=== PATIENT | male | born 1940 | race Caucasian/White ===

== ENCOUNTER 2017-06-01 15:01 | Emergency (ER) | payer MEDICARE, SELFPAY ==
[2017-06-01 15:02] VITALS: BP 146/82; PULSE 93; RESP 16; TEMP 36.4; O2SAT 96; BMI 36.2
[2017-06-01] MEDS: Lidocaine/Epi/Tetracaine 50 ML 1 APPLIC TOPICAL (16:16)
--- NOTE | 2017-06-01 17:25 | RAD_ITS ---
STUDY: X-RAY - RIGHT HAND, ATTENTION FIRST FINGER REASON FOR EXAM: Male, 76 years old. Pain and swelling TECHNIQUE: 3 view(s) of the finger were obtained. COMPARISON: None. FINDINGS: There is diffuse soft tissue swelling. There is destructive process of the head of the second phalanx and the base of the second distal phalanx. Findings are consistent with septic arthritis and osteoarthritis. 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 Electronically Signed: Ld Mcmillan MD at 17:52 EDT , Service support ,
--- NOTE | 2017-06-01 17:49 | ED.DCSUM_ITS ---
- ER Visit Summary Date of Service: 06/01/17 Chief Complaint: Right index finger pain, redness and swelling History of Present Illness: The patient is a 76 M hand dominant. Past medical history of CAD. Patient states for 2-3 weeks he had right index finger redness and swelling. He was seen by [facility] urgent care and has been placed on multiple different antibiotics including Keflex, Bactrim and I think doxycycline. This patient cannot read or write so we called the pharmacy. Patient states is not getting any better. He denies any trauma. Physical Examination: Well-appearing older male. Vital signs are stable afebrile. H EENT exam is unremarkable. Neck nontender. Lungs clear to auscultation. Heart regular rhythm no murmur. Abdomen soft nontender. Extremities moving all 4. His right index finger at the distal phalanx is red swollen and tender. There is no obvious eponychia. There is degenerative changes of the joints of the right hand consistent with arthritis. There is no signs of septic joint. There is no lymphangitic streaking. He is able to flex and extend the digit. He has normal cap refill. No signs of foreign body or trauma. No gross bony deformity other than arthritis. Test Results: Finger x-ray shows degenerative arthritic changes of distal phalanx of the right index finger. But no acute abnormality. There is also soft tissue swelling. Emergency Department Course and Treatment: I performed a metacarpal block of his right index finger. Lidocaine. Once proper consent was obtained I made an incision the distal end of the index finger. There was bleeding but absolutely no pus. I probed the incision and broke up any loculations and again there was no pus whatsoever. I then went to the dorsal side of the finger went along the nailbed made incision and there is no signs of an eponychia. This will be dressed. Treatment Plan: Patient will be placed on Keflex 4 times a day for 10 days. Follow-up with Dr. De Santiago of orthopedics. Disposition: discharge Impression: Index finger soft tissue infection Incision and drainage by ER This note was generated with [employer] dictation software. It may contain incorrect words, spelling, and punctuation that were not noted in review of the chart prior to signing ED Disposition - Plan for ED Patient: Chief Complaint: Upper Extremity Injury Referrals: Amado Gregory MD [Primary Care Provider] -
--- NOTE | 2017-06-01 17:49 | ED.DEP ---
ED Disposition - Plan for ED Patient: Disposition: Home or Assisted Living Chief Complaint: Upper Extremity Injury Prescriptions: Cephalexin [Keflex] 500 mg PO Q6 #40 cap Referrals: Amado Gregory MD [Primary Care Provider] - As soon as possible Additional Instructions: Suspect this is a soft tissue infection of your right index finger. We did the incision and drainage there was no pus however. He will be started on antibiotic Keflex 1 pill 4 times a day. And follow-up with Dr. De Santiago an orthopedic surgeon here at the hospital. Warm soaks to the finger daily. Tylenol for pain.
[2017-06-01 18:00] VITALS: PULSE 97; RESP 14; O2SAT 98
== END 2017-06-01 18:01 | disposition home or self-care (01) ==
PROVIDERS: Emergency Provider Emergency Medicine; Family Provider Family Medicine; PCP Family Medicine
DX: L08.9 Local infection of the skin and subcutaneous tissue, unspecified (principal); I25.10 Atherosclerotic heart disease of native coronary artery without angina pectoris; I25.2 Old myocardial infarction
CPT/HCPCS: 10060; 64450; 73140; 99283

== ENCOUNTER → 2017-06-22 11:02 | Outpatient (CLI) | payer MEDICARE, SELFPAY ==
[2017-06-22 11:43] LABS: Erythrocyte Sedimentation Rate 17 mm/hr (0-20)
[2017-06-22 11:44] LABS: Absolute Lymphocyte Count 1.35 X10^3/ul (0.83-4.51); Absolute Neutrophil Count 3.4 X10^3/uL (2.0-7.7); Basophil# 0.02 X10^3/uL; Basophil% 0.4 % (0-1); Eosinophil# 0.07 X10^3/uL; Eosinophils% 1.3 % (0-5); Hematocrit 37.8 % (40-54); Hemoglobin 13.4 g/dl (13.0-16.5); Lymphocyte # 1.35 X10^3/ul (4.0); Lymphocyte % 25.2 % (19-41); Mean Corp Hgb Conc 35.4 g/gl (32-36); Mean Corpuscular Hgb 32.1 pg (27.0-32.0); Mean Corpuscular Volume 90.4 fL (80-94); Mean Platelet Vol. 9.1 fl (6.2-12.0); Monocyte% 9.3 % (0-10); Neutrophil # 3.41 X10^3/uL (2.7-7.7); Neutrophil % 63.6 % (47-70); POSITIVE COUNT NO; POSITIVE DIFFERENTIAL NO; POSITIVE MORPHOLOGY NO; Platelet Count 207 K/mm3 (150-450); RBC Distribution Width SD 42.3 fl (35.1-43.9); Red Blood Count 4.18 M/mm3 (4.6-6.2); White Blood Count 5.4 K/mm3 (4.4-11.0)
[2017-06-22 12:07] LABS: CRP < 2.90 mg/L (0.0-3.0); Uric Acid 7.4 mg/dL (3.5-7.2)
[2017-06-23 09:45] LABS: Anion Gap 10 (5-15); BUN 23 mg/dL (7-18); BUN/Creat Ratio 19.7 RATIO (10-20); Calcium,Total 9.5 mg/dL (8.5-10.1); Chloride 103 mmol/L (98-107); Creatinine, Serum 1.17 mg/dL (0.70-1.30); EST Glomerular Filtration Rate 64 mL/min (>60); Est Glom Filt Rate - Afr Amer 77 mL/min (>60); Glucose 109 mg/dL (74-106); Potassium 4.4 mmol/L (3.5-5.1); Sodium Level 138 mmol/L (136-145)
== END ==
PROVIDERS: Family Provider Family Medicine; PCP Family Medicine; Visit Provider Physician Assistant
DX: L03.011 Cellulitis of right finger (principal); I10 Essential (primary) hypertension
CPT/HCPCS: 36415; 80048; 84550; 85025; 85652; 86140

== ENCOUNTER 2019-03-10 13:00 | Emergency (ER) | payer MEDICARE, MEDICAID, SELFPAY ==
[2019-03-10 13:01] VITALS: BP 149/86; PULSE 101; RESP 19; TEMP 36.8; O2SAT 95; BMI 35.9
--- NOTE | 2019-03-10 13:11 | EKG12_ITS ---
Test Reason : Blood Pressure : / mmHG Vent. Rate : 097 BPM Atrial Rate : 097 BPM P-R Int : 198 ms QRS Dur : 084 ms QT Int : 338 ms P-R-T Axes : 052 032 009 degrees QTc Int : 429 ms Normal sinus rhythm Normal ECG Confirmed by HILARY CALDWELL MD ([id number]), editorial cartoonist BRENDA REYES ([id number]) on 03/13/2019 8:32:46 AM Referred By: LARRY Confirmed By:HILARY CALDWELL MD
--- NOTE | 2019-03-10 13:11 | RAD_ITS ---
STUDY: X-RAY CHEST REASON FOR EXAM: Male, 78 years old. WEAKNESS, CONFUSION TECHNIQUE: Single AP portable view of the chest. COMPARISON: 11/15/2009. FINDINGS: There are hypoventilatory changes. No focal infiltrate is seen. There is no demonstrated pleural abnormality. There is borderline cardiomegaly. Normal mediastinum and tim. Normal visualized pulmonary arteries. There is atherosclerotic calcification of the aortic arch with tortuosity. Stable bony structures. There is no demonstrated abnormality of the visualized soft tissue structures of the upper abdomen. RAD/Chest 1 View (Portable) IMPRESSION: No active pulmonary disease. Electronically Signed: Nayan Reyna MD at 13:42 EST Tel , Service support ,
--- NOTE | 2019-03-10 13:57 | RAD_ITS ---
STUDY: X-RAY - PELVIS AND RIGHT HIP REASON FOR EXAM: Male, 78 years old. Confusion. Hypoglycemia. Unable to walk. TECHNIQUE: 4 views of the pelvis and hip. COMPARISON: None. FINDINGS: There is a non-specific bowel gas pattern. Normal visualized soft tissue structures. There are multiple calcified phleboliths. Normal bilateral iliac wings, sacroiliac joints and visualized sacrum. Normal bilateral superior and inferior pubic rami. Normal pubic symphysis. Normal bilateral ischial tuberosities. Normal visualized right femoral head. Normal right acetabulum. There is mild articular joint space narrowing of the right hip. RAD/HIP, UNI W/ Pelvis 2-3 Views IMPRESSION: Mild degenerative changes of right hip without fracture or dislocation. Electronically Signed: Shilo Rojas DO at 16:17 EST Tel [phone], Service support ,
--- NOTE | 2019-03-10 13:57 | RAD_ITS ---
STUDY: X-RAY - RIGHT KNEE REASON FOR EXAM: Male, 78 years old. Confusion. Unable to walk. Hypoglycemic. TECHNIQUE: 4 view(s) of the knee. COMPARISON: None. FINDINGS: Normal visualized distal femur. Normal visualized proximal tibia and fibula. Normal proximal tibiofibular articulation. There is no acute fracture, dislocation or destructive osseous pathology. There is minimal degenerative arthrosis of the medial femorotibial compartment. Normal lateral femorotibial compartment. Normal patellofemoral articulation. There is no demonstrated joint effusion. There are atherosclerotic calcifications. RAD/Knee 4 or More Views IMPRESSION: Minimal degenerative changes of the knee without fracture or dislocation. Electronically Signed: Shilo Rojas DO at 16:15 EST Tel [phone], Service support ,
--- NOTE | 2019-03-10 13:58 | RAD_ITS ---
STUDY: X-RAY - LUMBAR SPINE REASON FOR EXAM: Male, 78 years old. Confusion. Hypoglycemia. Unable to walk. TECHNIQUE: 3 view(s) of the lumbar spine were obtained. COMPARISON: None FINDINGS: Normal lumbar lordosis. There is no substantial scoliosis. There is a normal alignment of the vertebrae. There is multilevel endplate spondylosis of the lumbar vertebrae. Normal disc space heights. There is no evidence of acute fracture or loss of vertebral axial height. There is diffuse degenerative facet disease. There is atherosclerotic calcification of the abdominal aorta without a demonstrated aneurysm. RAD/Lumbar Spine 2 or 3 Views IMPRESSION: Degenerative changes of the spine, as detailed above. There is no acute fracture or subluxation. Electronically Signed: Shilo Rojas DO at 16:16 EST Tel [phone], Service support ,
--- NOTE | 2019-03-10 13:59 | ED.DCSUM_ITS ---
History of Present Illness Chief Complaint: Weakness Informant: Patient, Family Onset: - Maximum Severity: Mild - Ears Narrative: The patient presents complaining of knee pain that is had for years he has history of gout hypertension arthritis high cholesterol, he lives with his son the son reports today the symptoms were such that he had trouble getting around his house getting in and out of his van and he was brought to the hospital. The patient reports this is the same pain he has had for years it is exacerbated for no specific reason, he does intermittently fall but not recently, he has no head neck chest or abdominal pain he is eating and drinking well he feels if his pain could be better controlled he could function at home he also has intermittent urinary incontinence that is not new or different basically resting in the bed when you ask him what is bothering him he points to his right knee and complains of pain Past Medical History - Allergies and Home Meds Allergies/Adverse Reactions: Allergies No Known Allergies Allergy (Verified 03/10/19 13:07) Primary Care Physician: Amado Gregory MD [Primary Care Provider] - Past Medical History: - Smoking Status: Former smoker Review of Systems ROS: - As above General: Denies: Chills, Fever, Sweats Eyes: Denies: Visual changes - bilaterally, Diplopia ENT: Denies: Rhinorrhea, Sore throat Cardiovascular: Denies: Chest pain, Palpitations Respiratory: Denies: Dyspnea, Cough, Dyspnea on exertion Gastrointestinal: Denies: Abdominal pain, Nausea, Vomiting, Diarrhea, Melena, Hematochezia Genitourinary: Reports: - - Urinary incontinence. Denies: Dysuria, Hematuria, Frequency Musculoskeletal: Reports: - - Chronic pain in almost all of his joints he has gout he also complains of chronic pain in his right hand but his chief issue is persistent chronic pain to the right knee. Denies: Back pain, Extremity Pain Skin: Denies: Rash, Wounds Neurological: Denies: Headache, Weakness, Numbness Physical Exam Vital Signs/Narrative: Vital Signs Temp Pulse Resp BP Pulse Ox 03/10/19 13:01 98.2 F 101 H 19 H 149/86 H 95 General: Well nourished, Well developed, No Acute Distress Head: Normocephalic, Atraumatic Eyes: Perrl, EOMI ENT: Moist mucous membranes, No rhinorrhea Neck: Supple, Nontender Cardiovascular: Regular rate, Regular rhythm, No murmurs Respiratory: No distress, CTA bilaterally, Chest nontender Abdomen: Soft, Nontender, Nondistended, Normal bowel sounds Back: Nontender, Normal Inspection Extremities: Nontender, No edema, - - He has some arthritic changes to the right hand particularly to the right hand DIP and PIP joint there is no trauma here there is no signs of anything acute or active, the right knee which is focused in chief complaint he has full range of motion there is no signs of contusion or bruising he has no specific pain to the hip or to the back his distal leg exam shows chronic changes to the skin no signs of acute vascular or neurologic abnormality or deficiency Skin: Normal color, No rash Neurological: Alert, Oriented x3, Cranial nerves II-XII grossly intact, Normal Strength, Normal Sensation Psychological: Normal affect, Normal Mood Diagnostic/Tx/Re-eval - Medical Decision Making When all of the above in his age his complaints screening labs x-rays The patient's EKG shows a sinus rhythm nothing acute, his chest x-ray and all of the other x-rays show DJD nothing acute he has been medicated he is feeling better this knee discomfort he has had a longstanding he has had a for years the patient's couple discharged home, he will be discharged on Naprosyn [place] No. 4 tablets to use as needed he suggests he has a walker or cane that he can use have asked him to use that if not he will be provided with a walker and needs to follow-up with his outpatient providers for further management, he is comfortable discharge home to follow-up with his outpatient providers Home in stable Acute recurrent right knee pain ED Disposition - Plan for ED Patient: Diagnosis: Right knee pain Prescriptions: Naproxen [Naprosyn] 500 mg PO BID PRN PRN #10 tab PRN Reason: Pain Or Fever Prescription Printed Hydrocodone Bitart/Apap 5-325 [[place] 5MG-325MG] 1 tab PO Q4H PRN PRN 2 Days #10 tab PRN Reason: Pain Prescription Printed Walker [Ultra-Light Rollator] 1 ea [facility] DAILY #1 ea Prescription Printed Referrals: Amado Gregory MD [Primary Care Provider] -
--- NOTE | 2019-03-10 14:02 | RAD_ITS ---
STUDY: X-RAY - RIGHT HAND REASON FOR EXAM: Male, 78 years old. Confusion. Unable to walk. Patient says he hasn''t eaten a feeding and 2 days. Hypoglycemia. TECHNIQUE: 3 view(s) of the hand. COMPARISON: Right index finger, June 01, 2017. FINDINGS: Normal radiocarpal articulation. Normal distal radioulnar joint. Normal visualized carpal bones. There is degenerative joint disease of the scaphotrapezium / trapezoid articulation. The remainder of the carpal articulations are normal. There is degenerative arthrosis of the carpometacarpal (CMC) articulation of the thumb. Normal second through fifth carpometacarpal joints. Normal metacarpi. There is degenerative arthrosis of the first metacarpophalangeal (MCP) joint. There is degenerative arthrosis of the interphalangeal joint of the thumb with articular joint space narrowing. Normal proximal and distal phalanges of the thumb. Normal metacarpophalangeal joints of the second through fifth fingers. There is diffuse articular joint space narrowing of the proximal and distal interphalangeal joints of the second through fifth fingers. Again seen is erosive changes of the second distal interphalangeal joint. There is a mild flexion deformity. Otherwise normal phalanges of the second through fifth fingers. The soft tissue structures are unremarkable. RAD/Hand Min 3 Views IMPRESSION: 1. No acute fracture or dislocation. 2. Stable erosive changes at the second distal interphalangeal joint. Arthritic versus infectious. Etiology Electronically Signed: Shilo Rojas DO at 16:13 EST Tel [phone], Service support ,
[2019-03-10 14:16] LABS: Absolute Lymphocyte Count 0.65 X10^3/uL (0.83-4.51); Absolute Neutrophil Count 5.1 X10^3/uL (2.0-7.7); Basophil# 0.01 X10^3/uL; Basophil% 0.2 % (0-1); Eosinophil# 0.01 X10^3/uL; Eosinophils% 0.2 % (0-5); Hematocrit 34.7 % (40-54); Hemoglobin 11.8 g/dL (13.0-16.5); Lymphocyte # 0.65 X10^3/ul (4.0); Lymphocyte % 9.9 % (19-41); Mean Corpuscular Volume 91.1 fL (80-94); Mean Platelet Vol. 8.8 fl (6.2-12.0); Monocyte# 0.84 X10^3/uL; Monocyte% 12.7 % (0-10); NRBC Flagged by Analyzer 0 % (0-5); Neutrophil # 5.07 X10^3/uL (2.7-7.7); Neutrophil % 76.8 % (47-70); Platelet Count 181 K/mm3 (150-450); RBC Distribution Width CV 13.2 % (11.6-14.6); RBC Distribution Width SD 44.2 fl (35.1-43.9); Red Blood Count 3.81 M/mm3 (4.6-6.2); White Blood Count 6.6 K/mm3 (4.4-11.0)
[2019-03-10 14:34] LABS: Anion Gap 5 (5-15); BUN 36 mg/dL (7-18); BUN/Creat Ratio 31.6 RATIO (10-20); Calcium,Total 9.1 mg/dL (8.5-10.1); Chloride 101 mmol/L (98-107); Creatinine, Serum 1.14 mg/dL (0.70-1.30); EST Glomerular Filtration Rate 66 mL/min (>60); Est Glom Filt Rate - Afr Amer 79 mL/min (>60); Estimated Creatinine Clearance 51.68 ml/min; Glucose 130 mg/dL (74-106); Sodium Level 133 mmol/L (136-145)
[2019-03-10] MEDS: Ondansetron 8 MG Tablet PO (15:02)
[2019-03-10] MEDS: Ketorolac 15 MG/ML Vial IV (15:02)
[2019-03-10] MEDS: morphine 8 MG/ML Syringe 6 MG IV (15:03)
[2019-03-10 16:19] VITALS: BP 127/73; PULSE 82; RESP 16; O2SAT 95; O2SAT 96
[2019-03-10 18:32] VITALS: BP 135/65; PULSE 80; RESP 16; O2SAT 93
== END 2019-03-10 18:58 | disposition home or self-care (01) ==
LOC: ED 13:47
PROVIDERS: Emergency Provider Emergency Medicine; PCP Family Medicine
DX: M17.11 Unilateral primary osteoarthritis, right knee (principal); M16.11 Unilateral primary osteoarthritis, right hip; I10 Essential (primary) hypertension; M10.9 Gout, unspecified; E78.00 Pure hypercholesterolemia, unspecified; Z87.891 Personal history of nicotine dependence
CPT/HCPCS: 71045; 72100; 73130; 73502; 73564; 80048; 83880; 84484; 85025; 93005; 96374; 96375; 99285; A4216

== ENCOUNTER 2019-03-16 09:53 | Inpatient (IN) | payer MEDICARE, MEDICAID, SELFPAY ==
[2019-03-16 09:54] VITALS: BP 124/74; PULSE 95; RESP 16; TEMP 36.1; O2SAT 98; BMI 31.3
--- NOTE | 2019-03-16 10:06 | CT_ITS ---
STUDY: CT BRAIN WITHOUT CONTRAST REASON FOR EXAM: Male, 78 years old. Confusion, mental status change RADIATION DOSAGE (If Supplied By Facility): CTDIvol = ( 44.99 ) mGy, DLP = ( 796.11 ) mGycm TECHNIQUE: Transaxial CT imaging of the brain was performed without administration of intravenous contrast material. Individualized dose optimization techniques were used for this CT. COMPARISON: No relevant priors. FINDINGS: Normal soft tissue structures. Normal calvarium. There is mild cerebral atrophy with widening of the extra-axial spaces and ventricular dilatation. There are areas of decreased attenuation within the white matter tracts of the supratentorial brain, consistent with microvascular disease changes. There is an old right frontal lobe infarct. Normal basal ganglia and thalami. Normal brainstem. Normal cerebellum. There is no intracranial hemorrhage. There are no findings of an acute ischemic infarction. Normal visualized paranasal sinuses. CT/Brain/Head without Contrast IMPRESSION: Chronic involutional changes of the brain no acute hemorrhage. Old right frontal lobe infarct Electronically Signed: David Ramirez MD at 11:30 EST , Service support ,
--- NOTE | 2019-03-16 10:06 | EKG12_ITS ---
Test Reason : WEAKNESS Blood Pressure : / mmHG Vent. Rate : 084 BPM Atrial Rate : 084 BPM P-R Int : 208 ms QRS Dur : 078 ms QT Int : 392 ms P-R-T Axes : 053 016 015 degrees QTc Int : 463 ms Sinus rhythm with Premature atrial complexes Otherwise normal ECG Confirmed by MIRNA BRIDGES, PEDRO ([id number]), metropolitan editor ИРИНА MORLEY ([id number]) on 03/19/2019 10:52:22 AM Referred By: ANGELICA Confirmed By:RACHEL BRADLEY MD
--- NOTE | 2019-03-16 10:07 | CT_ITS ---
STUDY: CT ABDOMEN AND PELVIS WITHOUT CONTRAST REASON FOR EXAM: Male, 78 years old. WEIGHT LOSS, CONFUSION RADIATION DOSAGE (If Supplied By Facility): CTDIvol = ( 16.98 ) mGy, DLP = ( 1422.49 ) mGycm TECHNIQUE: Transaxial images were obtained from the dome of the diaphragm to the symphysis pubis without oral contrast, and without intravenous contrast. Sagittal and coronal images were reconstructed. Individualized dose optimization techniques were used for this CT. COMPARISON: None. FINDINGS: There are chronic interstitial fibrotic changes of the lung bases. Calcified coronary vessels noted. Normal liver. There are surgical clips in the gallbladder fossa consistent with a prior cholecystectomy. Normal spleen. Normal pancreas. There is a 1.31 cm smooth, low attenuation left adrenal mass, consistent with an adrenal adenoma. Normal right adrenal gland. Normal right kidney. Normal left kidney. Normal visualized stomach. Normal small intestine. Retained stool in colon. Scattered colonic diverticulosis. No CT evidence of acute diverticulitis The appendix is visualized and appears normal. Appendix best seen on coronal retention images 51 through 57 There is diffuse atherosclerotic calcification of the abdominal aorta, without a demonstrated aneurysm. Normal inferior vena cava. Normal retroperitoneum. Normal urinary bladder. There are prostatic calcifications. Normal abdominal wall. There are diffuse degenerative changes of the visualized lumbar spine. CT/Abdomen/Pelvis W IV Cont ONLY IMPRESSION: Colonic diverticulosis 1.3 cm left adrenal adenoma Diffuse atherosclerosis in the abdominal aorta and other arterial vessels Degenerative bony changes Electronically Signed: David Ramirez MD at 11:35 EST , Service support ,
--- NOTE | 2019-03-16 10:21 | ED.DCSUM_ITS ---
History of Present Illness Chief Complaint: Weakness Informant: Patient Onset: Weeks Context: Gradual Onset Timing: Continuous Current Severity: Moderate Maximum Severity: Moderate Narrative: The patient is an 78-year-old male with medical history significant for hypertension, coronary vascular disease, hyperlipidemia with questionable diagnosis of dementia the presents to the emergency department with increasing weakness and diminished functioning. Per the son at the bedside who has been living with him for the past month, the patient has been gradually declining. This past week, he was trying to get into his car, and had weakness and could not. He was complaining of pain in his knee which he has history of arthritis. The patient was actually seen here. He had a metabolic work-up and x-rays done which were rather unremarkable. It did show his chronic degenerative change. The son states that since being home, his symptoms have worsened. He is been l ess talkative. He is not been eating. He is had about a 30 pound weight loss within the past month. He has had frequent falls. Prior similar symptoms: Yes Recent Illness/Hospitalization: No Past Medical History - Allergies and Home Meds Allergies/Adverse Reactions: Allergies No Known Allergies Allergy (Verified 03/16/19 09:53) Prior records reviewed: Yes Past Medical History: - - Coronary vascular disease, arthritis, hypertension, hyperlipidemia Surgical History: noncontributory Smoking Status: Former smoker Review of Systems General: Reports: Weight loss. Denies: Chills, Fever, Sweats Eyes: Denies: Visual changes - bilaterally, Diplopia ENT: Denies: Rhinorrhea, Sore throat Cardiovascular: Denies: Chest pain, Palpitations Respiratory: Denies: Dyspnea, Cough, Dyspnea on exertion Gastrointestinal: Reports: Nausea. Denies: Abdominal pain, Vomiting, Diarrhea, Melena, Hematochezia Genitourinary: Denies: Dysuria, Hematuria, Frequency Musculoskeletal: Denies: Back pain, Extremity Pain Skin: Denies: Rash, Wounds Neurological: Reports: Weakness. Denies: Headache, Numbness Physical Exam Vital Signs/Narrative: Vital Signs Temp Pulse Resp BP Pulse Ox 03/16/19 09:54 96.9 F L 95 16 124/74 H 98 Inital Vital Signs reviewed: Yes General: Well nourished, Well developed, No Acute Distress Head: Normocephalic, Atraumatic Eyes: Perrl, EOMI ENT: No rhinorrhea, Dry mucous membranes Neck: Supple, Nontender Cardiovascular: Regular rate, Regular rhythm, No murmurs Respiratory: No distress, CTA bilaterally, Chest nontender Abdomen: Soft, Nontender, Nondistended, Normal bowel sounds Back: Nontender, Normal Inspection Extremities: Nontender, No edema Skin: Normal color, No rash Neurological: Alert, Cranial nerves II-XII grossly intact, Normal Sensation, Weakness - right lower extremity Psychological: Normal affect, Normal Mood Diagnostic/Tx/Re-eval Clinical Impression(s) from Imaging Studies Brain CT 03/16/19 10:06 IMPRESSION: Chronic involutional changes of the brain no acute hemorrhage. Old right frontal lobe infarct Electronically Signed: David Ramirez MD at 11:30 EST , Service support , Abdomen/Pelvis CT 03/16/19 10:07 IMPRESSION: Colonic diverticulosis 1.3 cm left adrenal adenoma Diffuse atherosclerosis in the abdominal aorta and other arterial vessels Degenerative bony changes Electronically Signed: David Ramirez MD at 11:35 EST , Service support , Abnormal Lab Results 03/16/19 03/16/19 03/16/19 10:20 10:20 10:40 WBC 6.0 RBC 4.11 L Hgb 13.0 Hct 37.5 L MCV 91.2 MCH 31.6 MCHC 34.7 RDW Std Deviation 42.5 RDW Coeff of Bhavani 13.0 Plt Count 245 MPV 8.9 Immature Gran % (Auto) 0.500 Neut % (Auto) 74.4 H Lymph % (Auto) 9.8 L Webb % (Auto) 12.6 H Eos % (Auto) 2.2 Baso % (Auto) 0.5 Absolute Neuts (auto) 4.5 Absolute Lymphs (auto) 0.59 L Nucleated RBC % 0 Differential Comment SCANNED Sodium 133 L Potassium 3.5 Chloride 100 Carbon Dioxide 27.0 Anion Gap 6 BUN 39 H Creatinine 1.28 Estim Creat Clear Calc 46.03 Est GFR (MDRD) Af Amer 70 Est GFR (MDRD) Non-Af 57 L BUN/Creatinine Ratio 30.5 H Glucose 119 H Calcium 9.6 Total Bilirubin 1.30 H AST 48 H ALT 42 Alkaline Phosphatase 65 Total Protein 7.6 Albumin 4.1 Globulin 3.5 Albumin/Globulin Ratio 1.2 Urine Color Yellow Urine Clarity Sl. Cloudy Urine pH 5.0 Ur Specific [place] 1.025 Urine Protein Negative Urine Glucose (UA) Normal Urine Ketones 15 H Urine Occult Blood Negative Urine Nitrite Negative Urine Bilirubin 1 H Urine Urobilinogen 1 H Ur Leukocyte Esterase 25 H Urine RBC 0 SEEN Urine WBC 0-5 SEEN Ur Squamous Epith Cells 0-5 SEEN Urine Bacteria 0 SEEN Urine Mucus 2+ - Medical Decision Making Patient presents with increasing weakness, generalized malaise, and weight loss. Broad metabolic work-up was pursued. CT head shows evidence of old stroke, but no acute change. CT the abdomen pelvis given his weight loss was obtained. This was unremarkable. Screening labs are relatively unremarkable without signi ficant change from prior. However, I do suspect this is multifactorial. The patient likely has vascular dementia. He has not been eating. He has had significant weight loss. He is also been ataxic with frequent falls. I do feel he is likely need further metabolic work-up and likely placement. The son at bedside is in agreement with this plan of care. Impression 1. Frequent falls ED Disposition - Plan for ED Patient:
[2019-03-16] MEDS: 0.9% Normal Saline 1,000 ML 1000 ML IV (10:25)
[2019-03-16 10:31] LABS: Absolute Lymphocyte Count 0.59 X10^3/uL (0.83-4.51); Absolute Neutrophil Count 4.5 X10^3/uL (2.0-7.7); Basophil# 0.03 X10^3/uL; Basophil% 0.5 % (0-1); Eosinophil# 0.13 X10^3/uL; Eosinophils% 2.2 % (0-5); Hematocrit 37.5 % (40-54); Lymphocyte # 0.59 X10^3/ul (4.0); Lymphocyte % 9.8 % (19-41); Mean Corp Hgb Conc 34.7 g/dL (32-36); Mean Corpuscular Hgb 31.6 pg (27.0-32.0); Mean Corpuscular Volume 91.2 fL (80-94); Mean Platelet Vol. 8.9 fl (6.2-12.0); Monocyte# 0.76 X10^3/uL; Monocyte% 12.6 % (0-10); NRBC Flagged by Analyzer 0 % (0-5); Neutrophil % 74.4 % (47-70); POSITIVE DIFFERENTIAL YES; Platelet Count 245 K/mm3 (150-450); RBC Distribution Width SD 42.5 fl (35.1-43.9); Red Blood Count 4.11 M/mm3 (4.6-6.2)
[2019-03-16 10:33] LABS: Differential Indicated SCAN CRITERIA MET
[2019-03-16 10:43] LABS: Differential Comment SCANNED
[2019-03-16 10:44] LABS: Bacteria 0 SEEN /hpf (None Seen); Red Blood Cells-Urine 0 SEEN /hpf (0-5)
[2019-03-16 10:49] LABS: ALB/GLOB Ratio 1.2 RATIO (0.9-2.4); AST(SGOT) 48 U/L (15-37); Alanine Aminotransfer ALT/SGPT 42 U/L (16-61); Albumin, Serum 4.1 g/dL (3.2-5.0); Alkaline Phosphatase 65 U/L (45-117); Anion Gap 6 (5-15); BUN 39 mg/dL (7-18); BUN/Creat Ratio 30.5 RATIO (10-20); Calcium,Total 9.6 mg/dL (8.5-10.1); Chloride 100 mmol/L (98-107); Creatinine, Serum 1.28 mg/dL (0.70-1.30); EST Glomerular Filtration Rate 57 mL/min (>60); Est Glom Filt Rate - Afr Amer 70 mL/min (>60); Estimated Creatinine Clearance 46.03 ml/min; Globulin 3.5 g/dL (2.2-4.2); Glucose 119 mg/dL (74-106); Potassium 3.5 mmol/L (3.5-5.1); Protein, Total 7.6 g/dL (6.4-8.2); Sodium Level 133 mmol/L (136-145)
[2019-03-16 10:59] LABS: Color, Urine Yellow (Yellow); Glucose, Dipstick Normal (Normal); Ketone-Dipstick 15 mg/dl (Negative); Leukocyte Esterase-Dipstick 25 /ul (Negative); Nitrite-Dipstick Negative (Negative); Occult Blood-Urine Negative /ul (Negative); Protein-Dipstick Negative (Negative); Specific Gravity, Urine 1.025 (1.002-1.030); Urine Clarity Sl. Cloudy (Clear); Urine Urobilinogen 1 mg/dl (Normal)
[2019-03-16 11:02] LABS: Urine Bilirubin Dipstick 1 mg/dL (Negative)
[2019-03-16 11:08] LABS: Mucous, Urine 2+ /hpf (<or=2+); Squamous Epithelial Cells - UA 0-5 SEEN /hpf (0-5); White Blood Cells 0-5 SEEN /hpf (0-5)
[2019-03-16 12:33] VITALS: BP 148/94; PULSE 93; RESP 19; O2SAT 97
--- NOTE | 2019-03-16 12:39 | NURSING ---
pt more alert after iv bag infused. drinking pop. aware of staying in hosptial. stated, i sure hope i can get to ride my motorcycle this summer
[2019-03-16 12:59] VITALS: BP 148/94; PULSE 86; RESP 15; O2SAT 98
[2019-03-16 13:13] VITALS: BP 145/77; PULSE 94; RESP 18; TEMP 36.5; O2SAT 100; BMI 33.5
--- NOTE | 2019-03-16 14:11 | NURSING ---
Contacted Dr Cunningham's office (listed as patient PCP) requested patient home medication list and past medical history as patient has been unable to provide a full history of the above. Fax number provided to office staff for [facility]. Will await for information. Rosie cottrell RN aware of record request
[2019-03-16 15:08] VITALS: BMI 33.5
[2019-03-16] MEDS: 0.9% Saline Lock 10 ML Syringe IV (15:25)
[2019-03-16] MEDS: 0.9% Normal Saline 1,000 ML 100 ML IV (15:26)
[2019-03-16 17:15] VITALS: BP 121/65; PULSE 90; RESP 18; TEMP 36.8; O2SAT 95
--- NOTE | 2019-03-16 17:26 | PCM.HP.STD ---
<Miguel Rosado - Last Filed: 03/17/19 09:24> Problem List (1) Dementia Status: Acute (2) Debility Status: Chronic (3) HTN (hypertension) Status: Chronic (4) HLD (hyperlipidemia) Status: Chronic (5) BPH (benign prostatic hyperplasia) Status: Chronic History of Present Illness Date of Admission: 03/17/19 Chief Complaint: debility The patient is a 78 year old M with pmhx of dementia, htn, hld, bph who presented to the ER with increasing debility and weakness at home. Family was not present at the time of interview and patient is very confused and only able to provide minimal history, much of HPI obtained from chart. Son lives with him and notes gradual decline. The patient admits to weakness and minimal PO intake. His only complaint currently is right hand and right leg pain. He has a hx of arthritis. He has lost about 30 pounds in a month per his son. He had a 1.3 cm left adrenal adenoma previously unknown. He has no evidence of acute infection. He complains of fever/leukocytosis, no dysuria, no cough/sob/chills/wounds/nausea/vomiting. Plan is for therapy and placement. [] Past Medical History Past Medical History (Chronic Problems): Chronic Problems Debility (Chronic) HTN (hypertension) (Chronic) HLD (hyperlipidemia) (Chronic) BPH (benign prostatic hyperplasia) (Chronic) Allergies No Known Allergies Allergy (Verified 03/16/19 09:53) Home Medications: Ambulatory Orders Medication Instructions Recorded Amlodipine [Norvasc] 5 mg PO DAILY 06/01/17 Lisinopril/Hydrochlorothiazide 1 each PO DAILY 06/01/17 [Zestoretic 20-12.5 mg Tablet] Pravastatin [Pravachol] 80 mg PO DAILY 06/01/17 Walker [Ultra-Light Rollator] 1 ea MC DAILY #1 ea 03/10/19 Allopurinol [Zyloprim] 300 mg PO DAILY 03/16/19 Tamsulosin HCl [Flomax] 0.4 mg PO QHS 03/16/19 Surgical History: noncontributory Psychiatric History: No pertinent psych hx Lives: With Family Smoking Status: Current every day smoker Tobacco Use: Non-smoker Alcohol: None Drugs: None - *Family History Maternal History Items: No pertinent history Paternal History Items: No pertinent history Review of Systems Constitutional: Reports: Weakness, Fatigue. Denies: Chills, Fever, Weight Change HEENT: Denies: Head Aches, Sinus Congestion, Sinus Drainage Cardiovascular: Denies: Chest Pain, Palpitations Respiratory: Denies: Cough, Shortness of Breath, Shortness of breath at rest, Sputum production Gastrointestinal: Denies: Abdominal Pain, Nausea, Vomiting Genitourinary: Denies: Dysuria Musculoskeletal: Denies: Joint Pain, Joint Tenderness Skin: Denies: Rash, Wounds Neurological: Denies: Numbness, Tingling, Focal weakness Psychiatric: Denies: Anxiety, Depression, Homicidal Ideations, Suicidal Ideations Hematologic/ Lymphatic: Denies: Easy Bruising, Easy Bleeding VTE Information - Inpt Only VTE Present on Admission: No VTE Mechan Device Prophylaxis: None VTE Pharm Prophylaxis ordered?: No Patient Problems: Active and Suspected Problems Dementia (Acute) - Physical Exam Vitals/I&O's: Vital Signs Temp Pulse Resp BP Pulse Ox 98.2 F 90 18 121/65 H 95 03/16/19 17:15 03/16/19 17:15 03/16/19 17:15 03/16/19 17:15 03/16/19 17:15 Oxygen Delivery Method Room Air Weight: 226 lb 4.8 oz Body Mass Index (BMI) 33.5 Intake and Output for Last 24 Hours 03/14/19 03/15/19 03/16/19 23:59 23:59 23:59 Intake Total 1000 / 1000 Balance 1000 / 1000 General: Alert, Oriented x3, Cooperative HEENT: Atraumatic, PERRLA, EOMI, Normocephalic Neck: Supple, No JVD, Negative Carotid Bruits Lungs: Clear to auscultation, Normal air movement Cardiovascular: Regular rate, No murmurs Abdomen: Bowel Sounds Present, Soft, Non Tender Extremities: No edema, Capillary Refill Less than 3 Seconds Skin: No rashes, No breakdown Musculoskeletal: No Tenderness to Palpation of Joints or Extremities Neurological: Cranial nerves II-XII grossly intact Psych/Mental Status: Normal Affect, Appropriate, Alert and oriented to time, place, person, mood and affect Laboratory Results 03/16/19 10:20: WBC 6.0, RBC 4.11 L, Hgb 13.0, Hct 37.5 L, MCV 91.2, MCH 31.6, MCHC 34.7, RDW Std Deviation 42.5, RDW Coeff of Bhavani 13.0, Plt Count 245, MPV 8.9, Immature Gran % (Auto) 0.500, Neut % (Auto) 74.4 H, Lymph % (Auto) 9.8 L, [place] % (Auto) 12.6 H, Eos % (Auto) 2.2, Baso % (Auto) 0.5, Absolute Neuts (auto) 4.5, Absolute Lymphs (auto) 0.59 L, Nucleated RBC % 0, Differential Comment SCANNED 03/16/19 10:20: Sodium 133 L, Potassium 3.5, Chloride 100, Carbon Dioxide 27.0, Anion Gap 6, BUN 39 H, Creatinine 1.28, Estim Creat Clear Calc 46.03, Est GFR (MDRD) Af Amer 70, Est GFR (MDRD) Non-Af 57 L, BUN/Creatinine Ratio 30.5 H, Glucose 119 H, Calcium 9.6, Total Bilirubin 1.30 H, AST 48 H, ALT 42, Alkaline Phosphatase 65, Total Protein 7.6, Albumin 4.1, Globulin 3.5, Albumin/Globulin Ratio 1.2 03/16/19 10:40: Urine Color Yellow, Urine Clarity Sl. Cloudy, Urine pH 5.0, Ur Specific [place] 1.025, Urine Protein Negative, Urine Glucose (UA) Normal, Urine Ketones 15 H, Urine Occult Blood Negative, Urine Nitrite Negative, Urine Bilirubin 1 H, Urine Urobilinogen 1 H, Ur Leukocyte Esterase 25 H, Urine RBC 0 SEEN, Urine WBC 0-5 SEEN, Ur Squamous Epith Cells 0-5 SEEN, Urine Bacteria 0 SEEN, Urine Mucus 2+ Current Medications [facility] Amlodip[facility]ylate (Norvasc) 5 mg PO DAILY [facility] Enoxaparin Sodium (Lovenox) 40 mg SC DAILY [facility] Hydrochlorothiazide () 12.5 mg PO DAILY [facility] Sodium Chloride () 1,000 mls @ 100 mls/hr IV .Q10H [facility] Last Admin: 03/16/19 15:26 Dose: 100 mls/hr Documented by: Sodium Chloride () 250 mls @ 15 mls/hr IV .[id number] PRN PRN Reason: Saline Flush Sodium Chloride () 250 mls @ 15 mls/hr IV .[id number] PRN PRN Reason: Additional IVPB Infusion Lisinopril (Zestril) 20 mg PO DAILY [facility] Melatonin (Melatonin) 3 mg PO QHS PRN PRN PRN Reason: INSOMNIA Nutritional Formula (Lactose Free) (Ensure Enlive) 120 ml PO 4X/DAY [facility] Last Admin: 03/16/19 15:25 Dose: 120 ml Documented by: Ondansetron HCl (Zofran) 4 mg IV Q8H PRN PRN PRN Reason: NAUSEA/VOMITING Pravastatin Sodium (Pravachol) 80 mg PO DAILY@2200 [facility] Sodium Chloride () 10 - 40 ml IV UD PRN PRN Reason: SALINE FLUSH Last Admin: 03/16/19 15:25 Dose: 10 ml Documented by: Tamsulosin HCl (Flomax) 0.4 mg PO QHS [facility] Assessment/Plan All Active Problems Dementia (Acute) 1. Debility, functional decline - complicated by dementia. Pt A/Ox2 otherwise unable to provide significant hx. He does have some underlying arthritis. 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 Pelvis/spine/knee/hand xrays with degenerative changes 2. Adrenal adenoma - will need outpatient follow up. Recent 30 pound weight gain, however he has had little PO intake and is not caring for himself. Nutrition eval. 3. HTN - continue home meds 4. HLD - home meds 5. BPH - flomax DVT ppx: lovenox DC planning: SNF This patient was seen by Miguel Rosado PA-C under the supervision of Dr. Briseno <Danny Birseno - Last Filed: 03/17/19 16:29> History of Present Illness The patient is a 78 year old M [] Past Medical History Allergies No Known Allergies Allergy (Verified 03/16/19 09:53) - Physical Exam Vitals/I&O's: Vital Signs Temp Pulse Resp BP Pulse Ox 98 F 75 20 H 110/89 H 95 03/17/19 16:00 03/17/19 16:09 03/17/19 16:00 03/17/19 16:00 03/17/19 16:09 Oxygen Delivery Method Room Air Weight: 226 lb 4.8 oz Body Mass Index (BMI) 33.5 Intake and Output for Last 24 Hours 03/15/19 03/16/19 03/17/19 23:59 23:59 23:59 Intake Total 1200 / 1200 2288.33 / 2288.33 Output Total 300 / 300 400 / 400 Balance 900 / 900 1888.33 / 1888.33 Laboratory Results 03/17/19 06:28: WBC 3.8 L, RBC 3.68 L, Hgb 11.8 L, Hct 33.7 L, MCV 91.6, MCH 32.1 H, MCHC 35.0, RDW Std Deviation 43.6, RDW Coeff of Bhavani 13.0, Plt Count 194, MPV 9.0, Immature Gran % (Auto) 0.300, Neut % (Auto) 63.8, Lymph % (Auto) 18.9 L, [place] % (Auto) 12.5 H, Eos % (Auto) 4.0, Baso % (Auto) 0.5, Absolute Neuts (auto) 2.4, Absolute Lymphs (auto) 0.71 L, Nucleated RBC % 0 03/17/19 06:28: Sodium 135 L, Potassium 3.5, Chloride 103, Carbon Dioxide 27.0, Anion Gap 5, BUN 31 H, Creatinine 0.88, Estim Creat Clear Calc 64.77, Est GFR (MDRD) Af Amer 107, Est GFR (MDRD) Non-Af 88, BUN/Creatinine Ratio 35.1 H, Glucose 107 H, Calcium 8.8, Magnesium 1.9, Total Bilirubin 0.90, AST 35, ALT 33, Alkaline Phosphatase 55, Total Protein 6.5, Albumin 3.3, Globulin 3.2, Albumin/Globulin Ratio 1.0 03/17/19 06:28: Phosphorus 3.0 Current Medications Acetaminophen (Tylenol) 650 mg PO Q6H PRN PRN PRN Reason: Pain Score 1-11/16 Last Admin: 03/17/19 13:41 Dose: 650 mg Documented by: [facility]) [facility] Last Admin: 03/17/19 08:35 Dose: 300 mg Documented by: Amlodipine Besylate (Norvasc) 5 mg PO DAILY [facility] Last Admin: 03/17/19 10:43 Dose: 5 mg Documented by: Enoxaparin Sodium (Lovenox) 40 mg SC DAILY [facility] Last Admin: 03/17/19 10:42 Dose: 40 mg Documented by: Hydrochlorothiazide () 12.5 mg PO DAILY [facility] Last Admin: 03/17/19 10:42 Dose: 12.5 mg Documented by: Sodium Chloride () 250 mls @ 15 mls/hr IV .[id number] PRN PRN Reason: Saline Flush Sodium Chloride () 250 mls @ 15 mls/hr IV .[id number] PRN PRN Reason: Additional IVPB Infusion Lisinopril (Zestril) 20 mg PO DAILY [facility] Last Admin: 03/17/19 10:43 Dose: 20 mg Documented by: Melatonin (Melatonin) 3 mg PO QHS PRN PRN PRN Reason: INSOMNIA Menthol (Bengay Vanishing Scent) 1 applic TOPICAL 4X/DAY PRN PRN PRN Reason: Pain Score 1-10/10 Last Admin: 03/17/19 16:19 Dose: 1 applic Documented by: Nutritional Formula (Lactose Free) (Ensure Enlive) 120 ml PO 4X/DAY [facility] Last Admin: 03/17/19 13:40 Dose: 120 ml Documented by: Ondansetron HCl (Zofran) 4 mg IV Q8H PRN PRN PRN Reason: NAUSEA/VOMITING Pravastatin Sodium (Pravachol) 80 mg PO DAILY@2200 [facility] Last Admin: 03/16/19 21:15 Dose: 80 mg Documented by: Sodium Chloride () 10 - 40 ml IV UD PRN PRN Reason: SALINE FLUSH Last Admin: 03/16/19 15:25 Dose: 10 ml Documented by: Tamsulosin HCl (Flomax) 0.4 mg PO QHS [facility] Last Admin: 03/16/19 21:14 Dose: 0.4 mg Documented by: Code Visit Addendum: Dr. Briseno I personally examined the patient and reviewed the chart. I agree with the above. 78-year-old male with dementia presenting to the emergency department with increasing weakness and more confusion. Unfortunate by the time I was to evaluate the patient the son had left the bedside. So history from the patient was minimal. He was time at how his finger hurt. Per report and discussion with the PA, over the last week he has been getting weaker and weaker and increased confusion and so his son brought him in for evaluation. Lab work was unremarkable with normal white count normal LFTs and a normal UA. His blood pressure and heart rate were normal and the only thing abnormal was a 1.3 cm adrenal mass consistent with an adrenal adenoma on the CT scan. We will have PT and OT evaluate Mr. Bonner and we can decide on placement going forward, at the moment etiology of his increased confusion is unknown. Inpatient E&M: 31400 Init Hosp L2
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
--- NOTE | 2019-03-16 18:13 | NURSING ---
PER DAUGHTER DEEPIKA- PT REFUSES TO HAVE
[2019-03-16 20:58] VITALS: BP 149/77; PULSE 86; RESP 18; TEMP 36.6; O2SAT 98
[2019-03-16] MEDS: Tamsulosin HCl 0.4 MG Capsule PO (21:14)
[2019-03-16] MEDS: Pravastatin 80 MG Tablet PO (21:15)
[2019-03-17] MEDS: 0.9% Normal Saline 1,000 ML 100 ML IV ×2 (01:16→10:43)
[2019-03-17 03:40] VITALS: BP 134/67; PULSE 71; RESP 18; TEMP 36.6; O2SAT 100
[2019-03-17 06:46] LABS: Absolute Lymphocyte Count 0.71 X10^3/uL (0.83-4.51); Absolute Neutrophil Count 2.4 X10^3/uL (2.0-7.7); Basophil# 0.02 X10^3/uL; Basophil% 0.5 % (0-1); Eosinophil# 0.15 X10^3/uL; Hematocrit 33.7 % (40-54); Hemoglobin 11.8 g/dL (13.0-16.5); Lymphocyte # 0.71 X10^3/ul (4.0); Lymphocyte % 18.9 % (19-41); Mean Corpuscular Hgb 32.1 pg (27.0-32.0); Mean Corpuscular Volume 91.6 fL (80-94); Monocyte# 0.47 X10^3/uL; Monocyte% 12.5 % (0-10); NRBC Flagged by Analyzer 0 % (0-5); Neutrophil % 63.8 % (47-70); Platelet Count 194 K/mm3 (150-450); RBC Distribution Width SD 43.6 fl (35.1-43.9); Red Blood Count 3.68 M/mm3 (4.6-6.2); White Blood Count 3.8 K/mm3 (4.4-11.0)
[2019-03-17 07:12] LABS: AST(SGOT) 35 U/L (15-37); Alanine Aminotransfer ALT/SGPT 33 U/L (16-61); Albumin, Serum 3.3 g/dL (3.2-5.0); Alkaline Phosphatase 55 U/L (45-117); Anion Gap 5 (5-15); BUN 31 mg/dL (7-18); BUN/Creat Ratio 35.1 RATIO (10-20); Calcium,Total 8.8 mg/dL (8.5-10.1); Chloride 103 mmol/L (98-107); Creatinine, Serum 0.88 mg/dL (0.70-1.30); EST Glomerular Filtration Rate 88 mL/min (>60); Est Glom Filt Rate - Afr Amer 107 mL/min (>60); Estimated Creatinine Clearance 64.77 ml/min; Globulin 3.2 g/dL (2.2-4.2); Glucose 107 mg/dL (74-106); Magnesium 1.9 mg/dL (1.6-2.6); Potassium 3.5 mmol/L (3.5-5.1); Protein, Total 6.5 g/dL (6.4-8.2); Sodium Level 135 mmol/L (136-145)
[2019-03-17] MEDS: Allopurinol 300 MG Tablet PO (08:35)
[2019-03-17 09:40] VITALS: BP 128/63; PULSE 81; RESP 20; TEMP 36.6; O2SAT 100
[2019-03-17 10:15] VITALS: PULSE 81; RESP 20; O2SAT 100
[2019-03-17] MEDS: Enoxaparin 40 MG/0.4 ML Syringe SC (10:42)
[2019-03-17] MEDS: hydroCHLOROthiazide 12.5mg 12.5 MG PO (10:42)
[2019-03-17] MEDS: Lisinopril 20 MG Tablet PO (10:43)
[2019-03-17] MEDS: amLODIPine 5 MG Tablet PO (10:43)
--- NOTE | 2019-03-17 13:12 | PCM.PN.HOSP ---
<Miguel Rosado - Last Filed: 03/17/19 13:12> Patient Problems: Active and Suspected Problems Dementia (Acute) Subjective: Ongoing right index finger pain, right thigh pain. Otherwise no complaints. Up in chair at bedside NAD. A/Ox2. Vitals/I&O's: Vital Signs Temp Pulse Resp BP Pulse Ox 98 F 81 20 H 128/63 H 100 03/17/19 09:40 03/17/19 10:15 03/17/19 10:15 03/17/19 09:40 03/17/19 10:15 Oxygen Delivery Method Room Air Weight: 226 lb 4.8 oz Body Mass Index (BMI) 33.5 Intake and Output for Last 24 Hours 03/15/19 03/16/19 03/17/19 23:59 23:59 23:59 Intake Total 1200 / 1200 2288.33 / 2288.33 Output Total 300 / 300 400 / 400 Balance 900 / 900 1888.33 / 1888.33 General: Alert, Cooperative, Confused, - - a/ox2 HEENT: Atraumatic, PERRLA, EOMI, Normocephalic Neck: Supple, No JVD, Negative Carotid Bruits Lungs: Clear to auscultation, Normal air movement Cardiovascular: Regular rate, No murmurs Abdomen: Bowel Sounds Present, Soft, Non Tender Extremities: No edema, Capillary Refill Less than 3 Seconds, - - right index DIP somewhat swollen, however nontender and ROM intact. Skin: No rashes, No breakdown Musculoskeletal: No Tenderness to Palpation of Joints or Extremities Neurological: Cranial nerves II-XII grossly intact Psych/Mental Status: Normal Affect, Appropriate Laboratory Results 03/17/19 06:28: WBC 3.8 L, RBC 3.68 L, Hgb 11.8 L, Hct 33.7 L, MCV 91.6, MCH 32.1 H, MCHC 35.0, RDW Std Deviation 43.6, RDW Coeff of Bhavani 13.0, Plt Count 194, MPV 9.0, Immature Gran % (Auto) 0.300, Neut % (Auto) 63.8, Lymph % (Auto) 18.9 L, [place] % (Auto) 12.5 H, Eos % (Auto) 4.0, Baso % (Auto) 0.5, Absolute Neuts (auto) 2.4, Absolute Lymphs (auto) 0.71 L, Nucleated RBC % 0 03/17/19 06:28: Sodium 135 L, Potassium 3.5, Chloride 103, Carbon Dioxide 27.0, Anion Gap 5, BUN 31 H, Creatinine 0.88, Estim Creat Clear Calc 64.77, Est GFR (MDRD) Af Amer 107, Est GFR (MDRD) Non-Af 88, BUN/Creatinine Ratio 35.1 H, Glucose 107 H, Calcium 8.8, Magnesium 1.9, Total Bilirubin 0.90, AST 35, ALT 33, Alkaline Phosphatase 55, Total Protein 6.5, Albumin 3.3, Globulin 3.2, Albumin/Globulin Ratio 1.0 03/17/19 06:28: Phosphorus 3.0 Current Medications Acetaminophen (Tylenol) 650 mg PO Q6H PRN PRN PRN Reason: Pain Score 1-10/10 [facility] Last Admin: 03/17/19 08:35 Dose: 300 mg Documented by: Amlodipine Besylate (Norvasc) 5 mg PO DAILY [facility] Last Admin: 03/17/19 10:43 Dose: 5 mg Documented by: Enoxaparin Sodium (Lovenox) 40 mg SC DAILY [facility] Last Admin: 03/17/19 10:42 Dose: 40 mg Documented by: Hydrochlorothiazide () 12.5 mg PO DAILY [facility] Last Admin: 03/17/19 10:42 Dose: 12.5 mg Documented by: Sodium Chloride () 1,000 mls @ 100 mls/hr IV .Q10H [facility] Last Admin: 03/17/19 10:43 Dose: 100 mls/hr Documented by: Sodium Chloride () 250 mls @ 15 mls/hr IV .[id number] PRN PRN Reason: Saline Flush Sodium Chloride () 250 mls @ 15 mls/hr IV .[id number] PRN PRN Reason: Additional IVPB Infusion Lisinopril (Zestril) 20 mg PO DAILY [facility] Last Admin: 03/17/19 10:43 Dose: 20 mg Documented by: Melatonin (Melatonin) 3 mg PO QHS PRN PRN PRN Reason: INSOMNIA Menthol (Bengay Vanishing Scent) 1 applic TOPICAL 4X/DAY PRN PRN PRN Reason: Pain Score 1-10/10 Nutritional Formula (Lactose Free) (Ensure Enlive) 120 ml PO 4X/DAY [facility] Last Admin: 03/17/19 10:49 Dose: Not Given Documented by: Ondansetron HCl (Zofran) 4 mg IV Q8H PRN PRN PRN Reason: NAUSEA/VOMITING Pravastatin Sodium (Pravachol) 80 mg PO DAILY@2200 [facility] Last Admin: 03/16/19 21:15 Dose: 80 mg Documented by: Sodium Chloride () 10 - 40 ml IV UD PRN PRN Reason: SALINE FLUSH Last Admin: 03/16/19 15:25 Dose: 10 ml Documented by: Tamsulosin HCl (Flomax) 0.4 mg PO QHS [facility] Last Admin: 03/16/19 21:14 Dose: 0.4 mg Documented by: STROKE Vital Signs/Narrative: Vital Signs Temp Pulse Resp BP Pulse Ox 03/17/19 10:15 81 20 H 100 03/17/19 09:40 98 F 81 20 H 128/63 H 100 Medical Necessity - Tobacco Use Smoking Status: Current every day smoker Tobacco Use: Non-smoker Assessment/Plan All Active Problems Dementia (Acute) 1. Debility, functional decline - complicated by dementia. Pt A/Ox2 otherwise unable to provide significant hx. He does have some underlying arthritis. 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 Pelvis/spine/knee/hand xrays with degenerative changes -conservative pain management. 2. Adrenal adenoma - will need outpatient follow up. Recent 30 pound weight gain, however he has had little PO intake and is not caring for himself. Nutrition eval. 3. HTN - continue home meds 4. HLD - home meds 5. BPH - flomax DVT ppx: lovenox DC planning: SNF This patient was seen by Miguel Rosado PA-C under the supervision of Dr. Chapin <D[place]awnee - Last Filed: 03/17/19 15:47> Vitals/I&O's: Vital Signs Temp Pulse Resp BP Pulse Ox 98 F 81 20 H 128/63 H 100 03/17/19 09:40 03/17/19 10:15 03/17/19 10:15 03/17/19 09:40 03/17/19 10:15 Oxygen Delivery Method Room Air Weight: 102.648 kg Body Mass Index (BMI) 33.5 Intake and Output for Last 24 Hours 03/15/19 03/16/19 03/17/19 23:59 23:59 23:59 Intake Total 1200 / 1200 2288.33 / 2288.33 Output Total 300 / 300 400 / 400 Balance 900 / 900 1888.33 / 1888.33 Laboratory Results 03/17/19 06:28: WBC 3.8 L, RBC 3.68 L, Hgb 11.8 L, Hct 33.7 L, MCV 91.6, MCH 32.1 H, MCHC 35.0, RDW Std Deviation 43.6, RDW Coeff of Bhavani 13.0, Plt Count 194, MPV 9.0, Immature Gran % (Auto) 0.300, Neut % (Auto) 63.8, Lymph % (Auto) 18.9 L, [place] % (Auto) 12.5 H, Eos % (Auto) 4.0, Baso % (Auto) 0.5, Absolute Neuts (auto) 2.4, Absolute Lymphs (auto) 0.71 L, Nucleated RBC % 0 03/17/19 06:28: Sodium 135 L, Potassium 3.5, Chloride 103, Carbon Dioxide 27.0, Anion Gap 5, BUN 31 H, Creatinine 0.88, Estim Creat Clear Calc 64.77, Est GFR (MDRD) Af Amer 107, Est GFR (MDRD) Non-Af 88, BUN/Creatinine Ratio 35.1 H, Glucose 107 H, Calcium 8.8, Magnesium 1.9, Total Bilirubin 0.90, AST 35, ALT 33, Alkaline Phosphatase 55, Total Protein 6.5, Albumin 3.3, Globulin 3.2, Albumin/Globulin Ratio 1.0 03/17/19 06:28: Phosphorus 3.0 Current Medications Acetaminophen (Tylenol) 650 mg PO Q6H PRN PRN PRN Reason: Pain Score 1-1010 Last Admin: 03/17/19 13:41 Dose: 650 mg Documented by: [facility]) [facility] Last Admin: 03/17/19 08:35 Dose: 300 mg Documented by: Amlodipine Besylate (Norvasc) 5 mg PO DAILY [facility] Last Admin: 03/17/19 10:43 Dose: 5 mg Documented by: Enoxaparin Sodium (Lovenox) 40 mg SC DAILY [facility] Last Admin: 03/17/19 10:42 Dose: 40 mg Documented by: Hydrochlorothiazide () 12.5 mg PO DAILY [facility] Last Admin: 03/17/19 10:42 Dose: 12.5 mg Documented by: Sodium Chloride () 1,000 mls @ 100 mls/hr IV .Q10H [facility] Last Admin: 03/17/19 10:43 Dose: 100 mls/hr Documented by: Sodium Chloride () 250 mls @ 15 mls/hr IV .[id number] PRN PRN Reason: Saline Flush Sodium Chloride () 250 mls @ 15 mls/hr IV .[id number] PRN PRN Reason: Additional IVPB Infusion Lisinopril (Zestril) 20 mg PO DAILY [facility] Last Admin: 03/17/19 10:43 Dose: 20 mg Documented by: Melatonin (Melatonin) 3 mg PO QHS PRN PRN PRN Reason: INSOMNIA Menthol (Bengay Vanishing Scent) 1 applic TOPICAL 4X/DAY PRN PRN PRN Reason: Pain Score 1-10/10 Nutritional Formula (Lactose Free) (Ensure Enlive) 120 ml PO 4X/DAY [facility] Last Admin: 03/17/19 13:40 Dose: 120 ml Documented by: Ondansetron HCl (Zofran) 4 mg IV Q8H PRN PRN PRN Reason: NAUSEA/VOMITING Pravastatin Sodium (Pravachol) 80 mg PO DAILY@2200 [facility] Last Admin: 03/16/19 21:15 Dose: 80 mg Documented by: Sodium Chloride () 10 - 40 ml IV UD PRN PRN Reason: SALINE FLUSH Last Admin: 03/16/19 15:25 Dose: 10 ml Documented by: Tamsulosin HCl (Flomax) 0.4 mg PO QHS [facility] Last Admin: 03/16/19 21:14 Dose: 0.4 mg Documented by: Assessment/Plan This patient was seen in conjunction with WILD Jenkins. I have independently interviewed and examined the patient and reviewed pertinent historical, laboratory, and other data. Please refer to WILD Jenkins note for his patient's presentation, findings, and recommendations. I have reviewed and his note and concur with his documentation Patient seen and examined. Denied any new complaint. No acute events overnight. Physical Exam: Gen: Alert oriented x2, not pale, not jaundiced CVS:HS I +II, regular, no murmurs RESP:Clinically clear to auscultation GI: BS present and normal, soft, nontender, no palpable organs EXT:No edema ASSESSMENT: 1. Debility 2. Dementia 3. Acute kidney injury on CKD stage 3 4. Adrenal adenoma 5. Hypertension 6. Hyperlipidemia 7. BPH Plan: We will follow-up on PT and OT evaluation for discharge to subacute rehab Decrease IV fluids to 75 mils per hour for another 1 L and stop Repeat blood work in a.m. Rest of meds reviewed and continued Code Visit Inpatient E&M: 41570 Subs Hosp L2
[2019-03-17] MEDS: Acetaminophen 325 MG Tablet 650 MG PO ×2 (13:41→20:04)
[2019-03-17 16:00] VITALS: BP 110/89; PULSE 75; RESP 20; TEMP 36.6; O2SAT 98
[2019-03-17 16:09] VITALS: PULSE 75; O2SAT 95
[2019-03-17] MEDS: 0.9% Normal Saline 1,000 ML 75 ML IV (17:06)
[2019-03-17 21:06] VITALS: BP 153/81; PULSE 86; RESP 20; TEMP 36.7; O2SAT 100
[2019-03-17] MEDS: Tamsulosin HCl 0.4 MG Capsule PO (21:11)
[2019-03-17] MEDS: Pravastatin 80 MG Tablet PO (21:11)
[2019-03-18 03:06] VITALS: BP 151/74; PULSE 65; RESP 18; TEMP 36.2; O2SAT 97
[2019-03-18 06:40] LABS: Absolute Lymphocyte Count 0.61 X10^3/uL (0.83-4.51); Basophil# 0.01 X10^3/uL; Basophil% 0.3 % (0-1); Eosinophil# 0.13 X10^3/uL; Eosinophils% 4.2 % (0-5); Hematocrit 31.4 % (40-54); Hemoglobin 10.9 g/dL (13.0-16.5); Lymphocyte # 0.61 X10^3/ul (4.0); Lymphocyte % 19.6 % (19-41); Mean Corp Hgb Conc 34.7 g/dL (32-36); Mean Corpuscular Hgb 31.5 pg (27.0-32.0); Mean Corpuscular Volume 90.8 fL (80-94); Mean Platelet Vol. 9.1 fl (6.2-12.0); Monocyte# 0.38 X10^3/uL; Monocyte% 12.2 % (0-10); NRBC Flagged by Analyzer 0 % (0-5); Neutrophil # 1.97 X10^3/uL (2.7-7.7); Neutrophil % 63.1 % (47-70); Platelet Count 186 K/mm3 (150-450); RBC Distribution Width CV 13.2 % (11.6-14.6); RBC Distribution Width SD 43.7 fl (35.1-43.9); Red Blood Count 3.46 M/mm3 (4.6-6.2); White Blood Count 3.1 K/mm3 (4.4-11.0)
[2019-03-18 06:55] LABS: AST(SGOT) 25 U/L (15-37); Alanine Aminotransfer ALT/SGPT 31 U/L (16-61); Albumin, Serum 3.1 g/dL (3.2-5.0); Alkaline Phosphatase 51 U/L (45-117); Anion Gap 5 (5-15); BUN 26 mg/dL (7-18); BUN/Creat Ratio 29.1 RATIO (10-20); Calcium,Total 8.8 mg/dL (8.5-10.1); Chloride 105 mmol/L (98-107); Creatinine, Serum 0.89 mg/dL (0.70-1.30); EST Glomerular Filtration Rate 87 mL/min (>60); Est Glom Filt Rate - Afr Amer 105 mL/min (>60); Estimated Creatinine Clearance 64.04 ml/min; Globulin 3.1 g/dL (2.2-4.2); Glucose 114 mg/dL (74-106); Potassium 3.4 mmol/L (3.5-5.1); Protein, Total 6.2 g/dL (6.4-8.2); Sodium Level 137 mmol/L (136-145)
[2019-03-18 10:49] VITALS: BP 145/56; PULSE 61; RESP 20; TEMP 36.4; O2SAT 100
[2019-03-18] MEDS: Enoxaparin 40 MG/0.4 ML Syringe SC (10:52)
[2019-03-18] MEDS: hydroCHLOROthiazide 12.5mg 12.5 MG PO (10:52)
[2019-03-18] MEDS: amLODIPine 5 MG Tablet PO (10:53)
[2019-03-18] MEDS: Allopurinol 300 MG Tablet PO (10:53)
[2019-03-18] MEDS: Lisinopril 20 MG Tablet PO (10:53)
--- NOTE | 2019-03-18 12:17 | PN_ITS ---
<Miguel Rosado - Last Filed: 03/18/19 12:17> Patient Problems: Active and Suspected Problems Dementia (Acute) Reason for Visit: Inability to care for self Subjective: Ongoing confusion. A/Ox2 (person place). C/o right lateral calf pain, right index finger pain. Some muscle spasms in the lateral calf. No N/V. No SOB. Resting comfortably in chair at bedside NAD. Vitals/I&O's: Vital Signs Temp Pulse Resp BP Pulse Ox 97.6 F L 61 20 H 145/56 H 100 03/18/19 10:49 03/18/19 10:49 03/18/19 10:49 03/18/19 10:49 03/18/19 10:49 Oxygen Delivery Method Room Air Weight: 226 lb 4.8 oz Body Mass Index (BMI) 33.5 Intake and Output for Last 24 Hours 03/16/19 03/17/19 03/18/19 23:59 23:59 23:59 Intake Total 1200 / 1200 3406.66 / 3906.66 1700 / 1700 Output Total 300 / 300 800 / 1100 850 / 850 Balance 900 / 900 2606.66 / 2806.66 850 / 850 General: Alert, Cooperative, Confused HEENT: Atraumatic, PERRLA, EOMI, Normocephalic Neck: Supple, No JVD, Negative Carotid Bruits Lungs: Clear to auscultation, Normal air movement Cardiovascular: Regular rate, No murmurs Abdomen: Bowel Sounds Present, Soft, Non Tender Extremities: No edema, Capillary Refill Less than 3 Seconds Skin: No rashes, No breakdown Musculoskeletal: No Tenderness to Palpation of Joints or Extremities, - - right lateral calf muscle spasms and tenderness on palpation. Neurological: Cranial nerves II-XII grossly intact Psych/Mental Status: Normal Affect, Appropriate, Alert and oriented to time, place, person, mood and affect Laboratory Results 03/18/19 06:16: WBC 3.1 L, RBC 3.46 L, Hgb 10.9 L, Hct 31.4 L, MCV 90.8, MCH 31.5, MCHC 34.7, RDW Std Deviation 43.7, RDW Coeff of Bhavani 13.2, Plt Count 186, MPV 9.1, Immature Gran % (Auto) 0.600, Neut % (Auto) 63.1, Lymph % (Auto) 19.6, [place] % (Auto) 12.2 H, Eos % (Auto) 4.2, Baso % (Auto) 0.3, Absolute Neuts (auto) 2.0, Absolute Lymphs (auto) 0.61 L, Nucleated RBC % 0 03/18/19 06:16: Sodium 137, Potassium 3.4 L, Chloride 105, Carbon Dioxide 27.0, Anion Gap 5, BUN 26 H, Creatinine 0.89, Estim Creat Clear Calc 64.04, Est GFR (MDRD) Af Amer 105, Est GFR (MDRD) Non-Af 87, BUN/Creatinine Ratio 29.1 H, G lucose 114 H, Calcium 8.8, Total Bilirubin 0.60, AST 25, ALT 31, Alkaline Phosphatase 51, Total Protein 6.2 L, Albumin 3.1 L, Globulin 3.1, Albumin/Globulin Ratio 1.0 Current Medications Acetaminophen (Tylenol) 650 mg PO Q6H PRN PRN PRN Reason: Pain Score 1-1010 Last Admin: 03/17/19 20:04 Dose: 650 mg Documented by: [facility] Last Admin: 03/18/19 10:53 Dose: 300 mg Documented by: Amlodipine Besylate (Norvasc) 5 mg PO DAILY [facility] Last Admin: 03/18/19 10:53 Dose: 5 mg Documented by: Enoxaparin Sodium (Lovenox) 40 mg SC DAILY [facility] Last Admin: 03/18/19 10:52 Dose: 40 mg Documented by: Hydrochlorothiazide () 12.5 mg PO DAILY [facility] Last Admin: 03/18/19 10:52 Dose: 12.5 mg Documented by: Sodium Chloride () 250 mls @ 15 mls/hr IV .[id number] PRN PRN Reason: Saline Flush Sodium Chloride () 250 mls @ 15 mls/hr IV .[id number] PRN PRN Reason: Additional IVPB Infusion Lisinopril (Zestril) 20 mg PO DAILY [facility] Last Admin: 03/18/19 10:53 Dose: 20 mg Documented by: Melatonin (Melatonin) 3 mg PO QHS PRN PRN PRN Reason: INSOMNIA Menthol (Bengay Vanishing Scent) 1 applic TOPICAL 4X/DAY PRN PRN PRN Reason: Pain Score 1-10/10 Last Admin: 03/18/19 11:03 Dose: 1 applic Documented by: Nutritional Formula (Lactose Free) (Ensure Enlive) 120 ml PO 4X/DAY [facility] Last Admin: 03/18/19 10:51 Dose: 120 ml Documented by: Ondansetron HCl (Zofran) 4 mg IV Q8H PRN PRN PRN Reason: NAUSEA/VOMITING Potassium Chloride (K-Dur) 40 meq PO X1 ONE Stop: 03/18/19 12:13 Pravastatin Sodium (Pravachol) 80 mg PO DAILY@2200 [facility] Last Admin: 03/17/19 21:11 Dose: 80 mg Documented by: Sodium Chloride () 10 - 40 ml IV UD PRN PRN Reason: SALINE FLUSH Last Admin: 03/16/19 15:25 Dose: 10 ml Documented by: Tamsulosin HCl (Flomax) 0.4 mg PO QHS [facility] Last Admin: 03/17/19 21:11 Dose: 0.4 mg Documented by: STROKE Vital Signs/Narrative: Vital Signs Temp Pulse Resp BP Pulse Ox 03/18/19 10:49 97.6 F L 61 20 H 145/56 H 100 Medical Necessity - Tobacco Use Smoking Status: Current every day smoker Tobacco Use: Non-smoker Assessment/Plan All Active Problems Dementia (Acute) 1. Debility, functional decline - patient has remained stable with some right index finger pain and right lateral calf pain/muscle spasm. Treating conservatively with tylenol and bengay. if minimal improvement may try minimal dose of skelaxin. Plan is for SNF. 2. Adrenal adenoma - will need outpatient follow up. Recent 30 pound weight gain, however he has had little PO intake and is not caring for himself. Nutrition eval. 3. HTN - continue home meds 4. HLD - home meds 5. BPH - flomax DVT ppx: lovenox DC planning: SNF This patient was seen by Miguel Rosado PA-C under the supervision of Dr. Briseno <Danny Briseno F - Last Filed: 03/18/19 12:44> Vitals/I&O's: Vital Signs Temp Pulse Resp BP Pulse Ox 97.6 F L 61 20 H 145/56 H 100 03/18/19 10:49 03/18/19 10:49 03/18/19 10:49 03/18/19 10:49 03/18/19 10:49 Oxygen Delivery Method Room Air Weight: 226 lb 4.8 oz Body Mass Index (BMI) 33.5 Intake and Output for Last 24 Hours 03/16/19 03/17/19 03/18/19 23:59 23:59 23:59 Intake Total 1200 / 1200 3406.66 / 3906.66 1700 / 1700 Output Total 300 / 300 800 / 1100 850 / 850 Balance 900 / 900 2606.66 / 2806.66 850 / 850 Laboratory Results 03/18/19 06:16: WBC 3.1 L, RBC 3.46 L, Hgb 10.9 L, Hct 31.4 L, MCV 90.8, MCH 31.5, MCHC 34.7, RDW Std Deviation 43.7, RDW Coeff of Bhavani 13.2, Plt Count 186, MPV 9.1, Immature Gran % (Auto) 0.600, Neut % (Auto) 63.1, Lymph % (Auto) 19.6, [place] % (Auto) 12.2 H, Eos % (Auto) 4.2, Baso % (Auto) 0.3, Absolute Neuts (auto) 2.0, Absolute Lymphs (auto) 0.61 L, Nucleated RBC % 0 03/18/19 06:16: Sodium 137, Potassium 3.4 L, Chloride 105, Carbon Dioxide 27.0, Anion Gap 5, BUN 26 H, Creatinine 0.89, Estim Creat Clear Calc 64.04, Est GFR (MDRD) Af Amer 105, Est GFR (MDRD) Non-Af 87, BUN/Creatinine Ratio 29.1 H, Glucose 114 H, Calcium 8.8, Total Bilirubin 0.60, AST 25, ALT 31, Alkaline Phosphatase 51, Total Protein 6.2 L, Albumin 3.1 L, Globulin 3.1, Albumin/Globulin Ratio 1.0 Current Medications Acetaminophen (Tylenol) 650 mg PO Q6H PRN PRN PRN Reason: Pain Score 1-1010 Last Admin: 03/17/19 20:04 Dose: 650 mg Documented by: [facility] Last Admin: 03/18/19 10:53 Dose: 300 mg Documented by: Amlodipine Besylate (Norvasc) 5 mg PO DAILY [facility] Last Admin: 03/18/19 10:53 Dose: 5 mg Documented by: Enoxaparin Sodium (Lovenox) 40 mg SC DAILY [facility] Last Admin: 03/18/19 10:52 Dose: 40 mg Documented by: Hydrochlorothiazide () 12.5 mg PO DAILY [facility] Last Admin: 03/18/19 10:52 Dose: 12.5 mg Documented by: Sodium Chloride () 250 mls @ 15 mls/hr IV .[id number] PRN PRN Reason: Saline Flush Sodium Chloride () 250 mls @ 15 mls/hr IV .[id number] PRN PRN Reason: Additional IVPB Infusion Lisinopril (Zestril) 20 mg PO DAILY [facility] Last Admin: 03/18/19 10:53 Dose: 20 mg Documented by: Melatonin (Melatonin) 3 mg PO QHS PRN PRN PRN Reason: INSOMNIA Menthol (Bengay Vanishing Scent) 1 applic TOPICAL 4X/DAY PRN PRN PRN Reason: Pain Score 1-10/10 Last Admin: 03/18/19 11:03 Dose: 1 applic Documented by: Nutritional Formula (Lactose Free) (Ensure Enlive) 120 ml PO 4X/DAY [facility] Last Admin: 03/18/19 10:51 Dose: 120 ml Documented by: Ondansetron HCl (Zofran) 4 mg IV Q8H PRN PRN PRN Reason: NAUSEA/VOMITING Potassium Chloride (K-Dur) 40 meq PO X1 ONE Stop: 03/18/19 12:13 Pravastatin Sodium (Pravachol) 80 mg PO DAILY@2200 [facility] Last Admin: 03/17/19 21:11 Dose: 80 mg Documented by: Sodium Chloride () 10 - 40 ml IV UD PRN PRN Reason: SALINE FLUSH Last Admin: 03/16/19 15:25 Dose: 10 ml Documented by: Tamsulosin HCl (Flomax) 0.4 mg PO QHS [facility] Last Admin: 03/17/19 21:11 Dose: 0.4 mg Documented by: STROKE Vital Signs/Narrative: Vital Signs Temp Pulse Resp BP Pulse Ox 03/18/19 10:49 97.6 F L 61 20 H 145/56 H 100 Code Visit Addendum: Dr. Briseno I personally examined the patient and reviewed the chart. I agree with the above. 78-year-old male with dementia presenting to the emergency department with increasing weakness and more confusion. Per report he had been getting weaker over about the last week and was brought into the ER. Lab work was unremarkable vital signs were normal. He did have an incidental finding of an adrenal adenoma on CT scan otherwise he has been very stable. We will plan for placement to a halfway facility and rehab on discharge. Inpatient E&M: [id number] Subs Hosp L2
[2019-03-18] MEDS: Acetaminophen 325 MG Tablet 650 MG PO ×2 (16:45→22:41)
[2019-03-18 16:54] VITALS: BP 136/68; PULSE 75; RESP 18; TEMP 36.9; O2SAT 100
[2019-03-18] MEDS: 0.9% Saline Lock 10 ML Syringe IV (16:55)
--- NOTE | 2019-03-18 18:41 | NURSING ---
Pt only voided 100cc and another time that was not measured but mod amt. This nurse bladder scanned for 174ml.
[2019-03-18 22:00] VITALS: BP 159/82; PULSE 74; RESP 18; TEMP 36.7; O2SAT 98
[2019-03-18] MEDS: Pravastatin 80 MG Tablet PO (22:13)
[2019-03-18] MEDS: Tamsulosin HCl 0.4 MG Capsule PO (22:15)
[2019-03-19 03:31] VITALS: BP 163/79; PULSE 78; RESP 18; TEMP 36.2; O2SAT 99
[2019-03-19 08:50] VITALS: BP 152/56; PULSE 71; RESP 16; TEMP 37.2; O2SAT 99
[2019-03-19 08:52] VITALS: PULSE 70
[2019-03-19] MEDS: amLODIPine 5 MG Tablet PO (09:09)
[2019-03-19] MEDS: hydroCHLOROthiazide 12.5mg 12.5 MG PO (09:09)
[2019-03-19] MEDS: Allopurinol 300 MG Tablet PO (09:10)
[2019-03-19] MEDS: Enoxaparin 40 MG/0.4 ML Syringe SC (09:10)
[2019-03-19] MEDS: Acetaminophen 325 MG Tablet 650 MG PO ×2 (09:11→14:56)
[2019-03-19] MEDS: Lisinopril 20 MG Tablet PO (09:12)
--- NOTE | 2019-03-19 09:40 | CASEMGMT ---
Addendum entered by Reyna Us 03/19/19 12:39: SW received call from pt's daughter Seema. SW spoke with Seema regarding discharge planning and that SNF is being recommended. Seema states she is agreeable to SNF but only wants short term placement. Seema states that she told pt she would never place pt in SNF usp. Seema states that pt was doing really well up until a few weeks ago. Seema states pt has a girlfriend that is at [facility] and pt was going to visit her everyday and was super independent. Seema states that she would be agreeable to pt going to [facility]. KYA spoke with Seema regarding pt's confusion. Seema states that pt can't read or write, has never been able to tell his address, and she thinks that is why physician's are thinking pt is confused. KYA informed Seema that [facility] will likely need her to go to [facility] eventually and fill out paperwork for pt. Seema states she works double and states that her bother Elías would be fine to fill out paperwork at [facility] if needed. KYA informed Seema that this worker will keep her updated. KYA placed a call to Keri at [facility] and provided referral. Keri states as long as pt's medicare benefits check out she should be able to accept pt. KYA faxed referral. KYA updated Keri that medically pt is ready for discharge today once pt has been accepted to SNF. Plan: [facility] today pending acceptance. Original Note: Social Work Note Per physician, the recommendation is SNF. Per previous notes, pt's daughter Seema called in stating she was POA for pt. KYA attempted to call pt's daughter Seema to discuss discharge plans as pt is currently confused. There was no answer, KYA left message to have Seema call this worker back. Plan: SNF today pending acceptance Reyna Us DIRECTOR OF INCOME TAX, [employer]
--- NOTE | 2019-03-19 11:13 | PCM.EXTCARCO ---
- Diet 03/16/19 13:13 Diet: Regular Diet Food consistency:: Regular Liquid Consistency:: Regular/Thin - Routine Orders/Code Status Suppository Type: Dulcolax 10mg Suppository Frequency: Daily PRN Routine Lab Work: CBC - 5 days, BMP - 5 days Code Status: Full Code - Therapies Physical Therapy: Eval and Treat Occupational Therapy: Eval and Treat - Problem/Diagnosis (1) Dementia Status: Chronic Current Visit: Yes (2) Debility Status: Chronic Current Visit: Yes (3) HTN (hypertension) Status: Chronic Current Visit: Yes (4) HLD (hyperlipidemia) Status: Chronic Current Visit: Yes (5) BPH (benign prostatic hyperplasia) Status: Chronic Current Visit: Yes - Allergies/Procedures Done in Hospital Allergies/Adverse Reactions: Allergies No Known Allergies Allergy (Verified 03/16/19 09:53) Procedures: None - Type of Care/Length of Stay Estimated LOS: Convalescent Care Less Than 30 days Type of Care Needed: Skilled Rehab Potential: Fair Prognosis: Fair - Additional Orders/Day of Discharge Day of Discharge: 03/19/19 - Dietary and Speech Recommendations Dietitian Recommendations/Changes: Will order ONS medpass for increased nutrition if consumed. Once po intake improved, rec diet change to Cardiac d/t pmhx - Follow Up Care Primary Care Physician: Amado Gregory MD [Primary Care Provider] - Please follow up with your Primary Care Physician in: 1-2 weeks
--- NOTE | 2019-03-19 13:18 | CASEMGMT ---
Hospital exemption completed in HENS. RAYMOND Aranda
--- NOTE | 2019-03-19 13:55 | CASEMGMT ---
Social Work Note SW received call from Keri at [facility] stating she is able to accept pt today. KYA faxed completed discharge paperwork to [facility] including transfer to extended care, signed medication list and any scripts. Original in SNF folder and copy on pt's chart. HENS completed. Original in SNF folder and copy on pt's chart. SW arranged transportation through [facility] via cot, due to pt's confusion and dementia for 3:00pm. Transportation form complete and placed on SNF folder and copy on pt's chart. SW updated pt on discharge to [facility] today. Pt states understanding. RN updated on transportation time. KYA placed a call to pt's daughter Seema and updated her on transportation time. KYA placed a call to Keri at [facility] and updated her on transportation time. Plan: [facility] today skilled with [facility] transporting via cot at 3:00pm Reyna Us MSW, BODY WIRER
[2019-03-19 14:00] VITALS: BP 149/77; PULSE 75; RESP 16; TEMP 36.2; O2SAT 98
--- NOTE | 2019-03-19 15:07 | NURSING ---
Report called to Kaylie at [facility].
--- NOTE | 2019-03-19 15:22 | PCM.DC.SUM ---
<Miguel Rosado - Last Filed: 03/19/19 15:22> Discharge Date and Diagnosis Date of Admission: 03/17/19 Date of Discharge: 03/19/19 - Primary Discharge Diagnosis Inability to care for self worsening generalized debility Dementia, progressively worsening Left adrenal adenoma HTN HLD BPH Osteoarthritis - Secondary Discharge Diagnosis Chronic Problems Dementia (Chronic) Debility (Chronic) HTN (hypertension) (Chronic) HLD (hyperlipidemia) (Chronic) BPH (benign prostatic hyperplasia) (Chronic) Hospital Course and Treatment Imaging Results: CT/Brain/Head without Contrast IMPRESSION: Chronic involutional changes of the brain no acute hemorrhage. Old right frontal lobe infarct CT/Abdomen/Pelvis W IV Cont ONLY IMPRESSION: Colonic diverticulosis 1.3 cm left adrenal adenoma Diffuse atherosclerosis in the abdominal aorta and other arterial vessels Degenerative bony changes Operations: None Procedures: None Summary of Care Provided: Hospital Course: The patient is a 78 year old M with pmhx of dementia, BPH, HTN, HLD who presented to the ER with progressively worsening debility. He had become weaker and weaker with inability to care from himself and minimal PO intake. He had lost about 30 lbs over a month. He had elevated creatinine probably due to dehydration in the ER. No other acute process was identified. He complained of right index finger pain and right leg pain. Recent hand xray, knee xray, and hip xray were negative. In the ER CT brain showed an old infarct as above. CT abdomen showed a 1.3 cm adrenal adenoma. He was admitted to the med surg floor and given IV fluids. His renal function improved. He was given tylenol, bengay, for pain. He remained very confused A&Ox2 throughout stay. intermediate was recommended and family was agreeable. He was discharged in stable condition. He will need follow up with his PCP in 1-2 weeks. This patient was seen by Miguel Rosado PA-C under the supervision of Dr. Briseno. [] - Physical Exam Vitals/I&O's: Vital Signs Temp Pulse Resp BP Pulse Ox 97.2 F L 75 16 149/77 H 98 03/19/19 14:00 03/19/19 14:00 03/19/19 14:00 03/19/19 14:00 03/19/19 14:00 Oxygen Delivery Method Room Air Weight: 226 lb 4.8 oz Body Mass Index (BMI) 33.5 Intake and Output for Last 24 Hours 03/17/19 03/18/19 03/19/19 23:59 23:59 23:59 Intake Total 3406.66 / 3906.66 2290 / 2290 300 / 300 Output Total 800 / 1100 950 / 950 Balance 2606.66 / 2806.66 1340 / 1340 300 / 300 General: Alert, Cooperative, Confused HEENT: Atraumatic, PERRLA, EOMI, Normocephalic Neck: Supple, No JVD, Negative Carotid Bruits Lungs: Clear to auscultation, Normal air movement Cardiovascular: Regular rate, No murmurs Abdomen: Bowel Sounds Present, Soft, Non Tender Extremities: No edema, Capillary Refill Less than 3 Seconds Skin: No rashes, No breakdown Musculoskeletal: No Tenderness to Palpation of Joints or Extremities Neurological: Cranial nerves II-XII grossly intact Psych/Mental Status: Normal Affect, Appropriate, Alert and oriented to time, place, person, mood and affect Discharge Diet: Low fat/ Low Cholesterol, 2000 mg Sodium Diet Discharge Activity: Return to Normal Activity Home Medications: Medications to take at Discharge Amlodipine [Norvasc] 5 mg PO DAILY 06/01/17 Lisinopril/Hydrochlorothiazide [Zestoretic 20-12.5 mg Tablet] 1 each PO DAILY 06/01/17 Pravastatin [Pravachol] 80 mg PO DAILY 06/01/17 Walker [Ultra-Light Rollator] 1 ea MC DAILY #1 ea 03/10/19 Allopurinol [Zyloprim] 300 mg PO DAILY 03/16/19 Tamsulosin HCl [Flomax] 0.4 mg PO QHS 03/16/19 Ensure Enlive 120 ml PO 4X/DAY liquid 03/19/19 Melatonin 3 mg PO QHS PRN PRN tab 03/19/19 Menthol [Bengay Vanishing Scent] 1 applic TOPICAL 4X/DAY PRN PRN tube 03/19/19 Primary Care Physician: Amado Gregory MD [Primary Care Provider] - Please follow up with your Primary Care Physician in: 1-2 weeks Disposition: Retirement facility Medical Necessity - Tobacco Use Smoking Status: Current every day smoker Tobacco Use: Non-smoker Meaningful Use Info Meaningful Use Diagnoses (Choose all that apply): None applicable <Danny Briseno Ugo - Last Filed: 03/19/19 19:18> Discharge Date and Diagnosis - Secondary Discharge Diagnosis Chronic Problems Dementia (Chronic) Debility (Chronic) HTN (hypertension) (Chronic) HLD (hyperlipidemia) (Chronic) BPH (benign prostatic hyperplasia) (Chronic) Hospital Course and Treatment Summary of Care Provided: The patient is a 78 year old M [] - Physical Exam Vitals/I&O's: Vital Signs Temp Pulse Resp BP Pulse Ox 97.2 F L 75 16 149/77 H 98 03/19/19 14:00 03/19/19 14:00 03/19/19 14:00 03/19/19 14:00 03/19/19 14:00 Oxygen Delivery Method Room Air Weight: 226 lb 4.8 oz Body Mass Index (BMI) 33.5 Intake and Output for Last 24 Hours 03/17/19 03/18/19 03/19/19 23:59 23:59 23:59 Intake Total 3406.66 / 3906.66 2290 / 2290 300 / 300 Output Total 800 / 1100 950 / 950 Balance 2606.66 / 2806.66 1340 / 1340 300 / 300 Code Visit Addendum: Dr. Briseno I personally examined the patient and reviewed the chart. I agree with the above. 78-year-old male with dementia presented to the emergency department with increasing weakness and more confusion. Lab work on admission was negative for any cause of confusion including no signs of infection with a normal UA. His renal function was normal as were all of his electrolytes. Because of his weakness and increased confusion he is unable to take care of himself at home, and therefore was transferred to a [facility] facility. Inpatient E&M: [id number] Disch Hosp
== END 2019-03-19 14:59 | DRG 884 ==
LOC: ED 10:18 → MS3 12:47
PROVIDERS: Admitting Provider Family Medicine; Emergency Provider Emergency Medicine; PCP Family Medicine; Visit Provider Internal Medicine
DX: F03.90 Unspecified dementia, unspecified severity, without behavioral disturbance, psychotic disturbance, mood disturbance, and anxiety (principal); N17.9 Acute kidney failure, unspecified; R53.1 Weakness; I12.9 Hypertensive chronic kidney disease with stage 1 through stage 4 chronic kidney disease, or unspecified chronic kidney disease; N18.3 Chronic kidney disease, stage 3 (moderate); E78.5 Hyperlipidemia, unspecified; N40.0 Benign prostatic hyperplasia without lower urinary tract symptoms; D35.02 Benign neoplasm of left adrenal gland; M19.90 Unspecified osteoarthritis, unspecified site; E86.0 Dehydration; F17.200 Nicotine dependence, unspecified, uncomplicated; Z79.899 Other long term (current) drug therapy; Z86.73 Personal history of transient ischemic attack (TIA), and cerebral infarction without residual deficits
CPT/HCPCS: 36415; 70450; 74177; 80053; 81001; 83735; 84100; 85025; 93005; 97110; 97116; 97162; 97166; 97530; 97535; 99285; J7030; Q9967; A4216

== ENCOUNTER 2019-06-05 09:16 | Inpatient (IN) | payer MEDICARE, MEDICAID, SELFPAY ==
[2019-06-05] VITALS (8 sets, daily range): BP systolic 85–120; BP diastolic 59–86; PULSE 61–125; RESP 14–19; TEMP 36.1–36.9; O2SAT 90–99; BMI 27.3; BMI 33.3
--- NOTE | 2019-06-05 09:30 | EKG12_ITS ---
Test Reason : Blood Pressure : / mmHG Vent. Rate : 118 BPM Atrial Rate : 267 BPM P-R Int : 000 ms QRS Dur : 084 ms QT Int : 302 ms P-R-T Axes : 000 039 242 degrees QTc Int : 423 ms Atrial fibrillation with rapid ventricular response Nonspecific ST and T wave abnormality Abnormal ECG Confirmed by LINO PEARL ([id number]), editor magazine ИРИНА MORLEY ([id number]) on 06/11/2019 2:48:21 PM Referred By: PC Confirmed By:LINO PEARL
--- NOTE | 2019-06-05 09:32 | ED.DCSUM_ITS ---
History of Present Illness Chief Complaint: Weakness Narrative: Patient is dropped at the emergency department by his children, apparently he has worsening weakness over the past few days including decreased p.o. intake, he does have a history of dysphasia, he has had decreased urine output and has had increased weakness at home. Patient has slight dementia, thus it is difficult to get a full history on him, including a review of systems. He is denying any pain, he is confused he does not know what year it is he knows he is at [facility], he tells me he does not know why he is here. Past Medical History - Allergies and Home Meds Allergies/Adverse Reactions: Allergies No Known Allergies Allergy (Verified 03/16/19 09:53) Primary Care Physician: Amado Gregory MD [Primary Care Provider] - Past Medical History: - - Chronic debility, dementia, chronic renal insufficiency, dysphasia Surgical History: noncontributory Smoking Status: Current every day smoker - Family History Maternal Family History: Reports: No pertinent history Paternal Family History: Reports: No pertinent history Review of Systems ROS: Unable to Obtain Physical Exam Vital Signs/Narrative: Vital Signs Temp Pulse Resp BP Pulse Ox 06/05/19 09:17 97 F L 61 18 85/59 L 90 General: - - He appears chronically ill Eyes: Perrl ENT: Dry mucous membranes Neck: Supple Cardiovascular: Regular rate, Regular rhythm Respiratory: No distress, CTA bilaterally Abdomen: Soft, Nontender Back: Nontender, Normal Inspection Extremities: Nontender, No edema Skin: Normal color, No rash Neurological: Alert, - - He is oriented to person and he knows he is at [facility], he has trouble understanding the situation, he does not know the year or the date or the month. He has no focal deficit Diagnostic/Tx/Re-eval - Rhythm Strip Rhythm Strip: A-fib Rate: 118 Ectopy: None - EKG Initial EKG Interpretation: - - Atrial fibrillation with a rate of 118. Normal QTc interval. Nonspecific ST and T wave changes throughout. This is changed from prior EKG however this is in 2001. Interpreted by emergency doctor - Medical Decision Making Patient is found to have new onset atrial fibrillation, he has weakness he also has bilateral patchy infiltrates, there is a concern for COVID thus a send te sting. Patient will be admitted due to generalized weakness, bilateral infiltrate and tachypnea. ED Disposition - Plan for ED Patient: Disposition: Acute Care Hospital [facility] Diagnosis: Bilateral pneumonia, covid concern, Weakness Referrals: Amado Gregory MD [Primary Care Provider] -
[2019-06-05] MEDS: 0.9% Normal Saline 1,000 ML 1000 ML IV (09:48)
--- NOTE | 2019-06-05 09:50 | RAD_ITS ---
STUDY: X-RAY CHEST REASON FOR EXAM: Male, 78 years old. PT HAS BEEN GETTING WEAKER AND WEAKER. STATES PT SLIGHTLY CONFUSED SINCE LAST WEEK. STATES PT HAS NOT URINATED SINCE Tuesday PT NOT EATING OR DRINKING. TECHNIQUE: Single AP portable view of the chest. COMPARISON: Comparison is made with prior study dated March 10, 2019. FINDINGS: There now is evidence of a patchy infiltrates in the lateral aspect of the right upper and lower lobes as well as in the lingular segment of the left upper lobe. Patchy bilateral pneumonias suggestive of Covid should be ruled. There is no demonstrated pleural abnormality. Normal size heart. Normal mediastinum and tim. Normal visualized pulmonary arteries. There is atherosclerotic calcification of the aortic arch with tortuosity. There are diffuse degenerative changes of the visualized thoracic spine. Normal visualized ribs, clavicles, and shoulders. There is no demonstrated abnormality of the visualized soft tissue structures of the upper abdomen. RAD/Chest 1 View (Portable) IMPRESSION: Patchy peripherally located bilateral infiltrates more prominent on the right side as described. In the appropriate clinical setting, Covid should be ruled out. N.B. : The above information has been verbally conveyed by Gerald Kaplan to Bertin Clarke MD, on 06/05/2019 10:25:22 (ET). Electronically Signed: Gerald Kaplan, at 10:27 EDT , Service support ,
[2019-06-05 09:59] LABS: Absolute Lymphocyte Count 0.79 X10^3/uL (0.83-4.51); Basophil# 0.03 X10^3/uL; Basophil% 0.4 % (0-1); Eosinophils% 2.6 % (0-5); Hematocrit 35.3 % (40-54); Lymphocyte # 0.79 X10^3/ul (4.0); Lymphocyte % 10.3 % (19-41); Mean Corpuscular Volume 94.1 fL (80-94); Mean Platelet Vol. 8.5 fl (6.2-12.0); Monocyte# 0.59 X10^3/uL; Monocyte% 7.7 % (0-10); NRBC Flagged by Analyzer 0 % (0-5); Neutrophil # 6.03 X10^3/uL (2.7-7.7); Neutrophil % 78.5 % (47-70); POSITIVE MORPHOLOGY YES; Platelet Count 252 K/mm3 (150-450); RBC Distribution Width SD 44.3 fl (35.1-43.9); Red Blood Count 3.75 M/mm3 (4.6-6.2); White Blood Count 7.7 K/mm3 (4.4-11.0)
[2019-06-05 10:02] LABS: Differential Indicated SCAN CRITERIA MET
[2019-06-05 10:16] LABS: ALB/GLOB Ratio 0.7 RATIO (0.9-2.4); AST(SGOT) 24 U/L (15-37); Alanine Aminotransfer ALT/SGPT 28 U/L (16-61); Albumin, Serum 3.1 g/dL (3.2-5.0); Alkaline Phosphatase 82 U/L (45-117); Anion Gap 7 (5-15); BUN 45 mg/dL (7-18); BUN/Creat Ratio 35.4 RATIO (10-20); Chloride 101 mmol/L (98-107); Creatinine, Serum 1.27 mg/dL (0.70-1.30); EST Glomerular Filtration Rate 58 mL/min (>60); Est Glom Filt Rate - Afr Amer 70 mL/min (>60); Estimated Creatinine Clearance 44.88 ml/min; Globulin 4.2 g/dL (2.2-4.2); Glucose 186 mg/dL (74-106); Potassium 3.1 mmol/L (3.5-5.1); Protein, Total 7.3 g/dL (6.4-8.2); Sodium Level 136 mmol/L (136-145)
[2019-06-05] MEDS: Ceftriaxone 1 GM/50 ML BAG IV (11:21)
[2019-06-05 11:32] LABS: Color, Urine Amber (Yellow); Glucose, Dipstick Normal (Normal); Ketone-Dipstick 5 mg/dl (Negative); Leukocyte Esterase-Dipstick 25 /ul (Negative); Nitrite-Dipstick Negative (Negative); Occult Blood-Urine Negative /ul (Negative); Protein-Dipstick 15 mg/dl (Negative); Specific Gravity, Urine 1.015 (1.002-1.030); Urine Clarity Sl. Cloudy (Clear); Urine Urobilinogen 4 mg/dl (Normal)
[2019-06-05 11:34] LABS: Urine Bilirubin Dipstick 1 mg/dL (Negative)
--- NOTE | 2019-06-05 13:07 | NURSING ---
MED SURG JOPPERI WEAKNESS, PNEUMONIA
--- NOTE | 2019-06-05 13:10 | ED.RN ---
notified daughter Seema of patients diagnosis and admission.
--- NOTE | 2019-06-05 15:28 | HP.PCM_ITS ---
History of Present Illness Date of Admission: 06/05/19 Chief Complaint: weakness The patient is a 78 year old M who is a poor historian but there was brought in by family for just being progressively weak. In the emergency room, patient had a chest x-ray was concerning for pneumonia particularly COVID type pneumonia and was started on Rocephin and azithromycin. Given the patient's weakness, the family felt that he was too unsafe to go home so admission was requested be evaluated by therapy and possible placement pending his course. [] Past Medical History Past Medical History (Chronic Problems): Chronic Problems Dementia (Chronic) Debility (Chronic) HTN (hypertension) (Chronic) HLD (hyperlipidemia) (Chronic) BPH (benign prostatic hyperplasia) (Chronic) Allergies No Known Allergies Allergy (Verified 03/16/19 09:53) Home Medications: Ambulatory Orders Medication Instructions Recorded Amlodipine [Norvasc] 5 mg PO DAILY 06/01/17 Lisinopril/Hydrochlorothiazide 1 each PO DAILY 06/01/17 [Zestoretic 20-12.5 mg Tablet] Pravastatin [Pravachol] 80 mg PO DAILY 06/01/17 Allopurinol [Zyloprim] 300 mg PO DAILY 03/16/19 Tamsulosin HCl [Flomax] 0.4 mg PO QHS 03/16/19 Ensure Enlive 120 ml PO 4X/DAY liquid 03/19/19 Melatonin 3 mg PO QHS PRN PRN tab 03/19/19 Menthol [Bengay Vanishing Scent] 1 applic TOPICAL 4X/DAY PRN PRN 03/19/19 tube Memantine Hydrochloride [Namenda] 10 mg PO BID 06/05/19 Surgical History: noncontributory Psychiatric History: No pertinent psych hx Smoking Status: Current every day smoker - *Family History Maternal History Items: No pertinent history Paternal History Items: No pertinent history Review of Systems Unable to obtain accurate/complete ROS d/t: Patient poor historian VTE Information - Inpt Only VTE Present on Admission: No VTE Mechan Device Prophylaxis: None VTE Pharm Prophylaxis ordered?: Yes Patient Problems: Active and Suspected Problems Bilateral pneumonia (Acute) Weakness (Acute) - Physical Exam Vitals/I&O's: Vital Signs Temp Pulse Resp BP Pulse Ox 36.9 C 105 H 185 H 108/73 98 06/05/19 14:15 06/05/19 14:15 06/05/19 14:15 06/05/19 14:15 06/05/19 14:15 Oxygen Delivery Method Room Air Weight: 99.4 kg Body Mass Index (BMI) 33.3 Intake and Output for Last 24 Hours 06/03/19 06/04/19 06/05/19 23:59 23:59 23:59 Intake Total 1050 / 1050 Balance 1050 / 1050 General: - - Awake. Afebrile. No respiratory distress. No conversational dyspnea. HEENT: Atraumatic, Normocephalic, - - No scleral icterus Oral: Moist Mucosa, No Gingival or Mucosal Lesions/ Ulcerations Neck: No Nodes, Trachea Midline Lungs: Clear to auscultation, Normal air movement, No rhonchi, No wheeze, No rales, Diminished Cardiovascular: Regular rate, Regular Rhythm, Normal S1, Normal S2, No murmurs Abdomen: Bowel Sounds Present, Soft, Non Tender, Non-Distended, No Hepato- splenomegaly Extremities: No edema, No Calf Tenderness Skin: No rashes, No breakdown Musculoskeletal: No Tenderness to Palpation of Joints or Extremities, No Muscle Wasting Neurological: Deep Tendon Reflexes 2+/4 and Symmetrical, - - No clonus Laboratory Results 06/05/19 09:40: WBC 7.7, RBC 3.75 L, Hgb 12.0 L, Hct 35.3 L, MCV 94.1 H, MCH 32.0, MCHC 34.0, RDW Std Deviation 44.3 H, RDW Coeff of Bhavani 13.0, Plt Count 252, MPV 8.5, Immature Gran % (Auto) 0.500, Neut % (Auto) 78.5 H, Lymph % (Auto) 10.3 L, [place] % (Auto) 7.7, Eos % (Auto) 2.6, Baso % (Auto) 0.4, Absolute Neuts (auto) 6.0, Absolute Lymphs (auto) 0.79 L, Nucleated RBC % 0 06/05/19 09:40: Sodium 136, Potassium 3.1 L, Chloride 101, Carbon Dioxide 28.0, Anion Gap 7, BUN 45 H, Creatinine 1.27, Estim Creat Clear Calc 44.88, Est GFR (MDRD) Af Amer 70, Est GFR (MDRD) Non-Af 58 L, BUN/Creatinine Ratio 35.4 H, Glucose 186 H, Calcium 9.0, Total Bilirubin 0.90, AST 24, ALT 28, Alkaline Phosphatase 82, Troponin I < 0.015, Total Protein 7.3, Albumin 3.1 L, Globulin 4.2, Albumin/Globulin Ratio 0.7 L 06/05/19 11:05: Urine Color Danii, Urine Clarity Sl. Cloudy, Urine pH 6.0, Ur Specific [place] 1.015, Urine Protein 15 H, Urine Glucose (UA) Normal, Urine Ketones 5 H, Urine Occult Blood Negative, Urine Nitrite Negative, Urine Bilirubin 1 H, Urine Urobilinogen 4 H, Ur Leukocyte Esterase 25 H 06/05/19 11:05: COVID-19 (THADDEUS) Pending Chest x-ray reviewed and showed bilateral patchy infiltrates versus pulmonary edema. EKG personally reviewed and showed atrial fibrillation that was rate controlled. Prior EKGs were sinus rhythm. Current Medications Sodium Chloride () 250 mls @ 15 mls/hr IV .[id number] PRN PRN Reason: Additional IVPB Infusion Sodium Chloride () 10 - 40 ml IV UD PRN PRN Reason: SALINE FLUSH Assessment/Plan All Active Problems Bilateral pneumonia (Acute) Weakness (Acute) 1. Possible pneumococcal pneumonia: Other possibilities could be acute CHF exacerbation. Clinically patient does not appear to be toxic. We will treat the patient empirically for pneumococcal pneumonia with Rocephin and azithromycin. Check sputum culture, urinary antigens but also for COVID though my suspicion for COVID is low. 2. Atrial fibrillation with rate control: New diagnosis though I suspect A. fib is probably more chronic at this point time. Patient be on aspirin. Is currently rate controlled. Check an echocardiogram to evaluate his ejection fraction. Patient may require to be on full dose anticoagulation but why the patient on telemetry to further monitor. Clinically patient does not appear to be volume overloaded so not and still CHF measures with fluid restrictions at this time. 3. Hypokalemia: We will replace. Check magnesium. 4. Debility: PT and OT evaluate and treat. Patient may require long-term facility upon discharge. Case management to help with those matters if necessary. 5. VTE prophylaxis: With enoxaparin Inpatient E&M: 74194 Init Hosp L3
--- NOTE | 2019-06-05 15:43 | CASEMGMT ---
RN CM Assessment Called patient POA Dtr Seema Bonner, Dtr erik and this news writer introduced role of RN CM to patient. Patient Baseline confused- does not know how to read or write. Dtr able and agrees to participate in RN CM Assessment. Care providers, pharmacy, and demographics verified. Presentation: Worsening weakness past few days, decreased PO intake, decreased UO, H/o dysphagia and slight dementia. Admit Dx: Pneumonia Re-Admit: No, Last Admit 03/16-03/19/19 for confusion and was Dc'd to [facility], stayed there for approx 6 weeks and was Dc'd back to being Independent with ambulation until this current illness. Barriers/Issues: Per Dtr states that patient has not showered since 2007 when his - states it was her mom that would make patient shower. She is not sure if he even washes himself down, states that he is a hoarder and stuff is in his shower, states nobody cannot make him shower and the care home had a tough time getting him to shower. States has an odor to him and has worn same dirty shirt to [employer] on Sundays and has been kicked out of places for odor. Recent Jeannette and states told will get 4hrs three times/week and her brother (patient son Elías whom lives close to patient and currently on disability will be the motorized squad lieutenant for patient as he already currently dose). [facility] told patient [employer] is Lisandra Vance and she will be contacting her soon. Supposed to have meal delivery and emergency medical alert device set up through [facility]. PCP: Amado Gregory Specialists: None Preferred Pharmacy: [facility] Insurance: [facility] A&B, Jeannette Rx Benefit: Yes LNOK: Dtr Seema Bonner (Works doubles) LW/HPOA: States has HPOA completed and Dtr Seema Bonner is HPOA- aware no copy on file and if brought in, will scan a copy on file. Living Arrangements: Lives alone in a 2SH, patient bedroom upstairs. States that he prefers to sleep upstairs and does not have any heat upstairs and uses a Kerosine heater that he shuts off every night- Dtr has been this way every since they were kids, Has a bedroom on [address] that patient can use if ever needed. 4 steps to enter home with grab bars ADL?s: Independent prior to March 2019 admission, sent to [facility]. Independent with ambulation after DC from [facility]. Does not bathe. Independent with ambulation and meals. Dtr sorts meds and son Elías ensures patient takes meds accurately. Dtr grocery shops. Transportation: Patient used to drive prior, has not been driving recently as told by family he cannot, son Elías has been transporting but patient has not really gone out since COVID issue has been around. Elías to transport upon DC. DME: 3 point foldable cane, Rollator, 4 post walker. HHC: None SNF: Past [facility] 03/19/2019 x6 weeks Goal: Per Dtr Home but if patient is still weak and SNF recommended for temporary rehab then that is okay, preference would be [facility]. Needs TBD as patient just admitted. Denies any issues, concerns or questions with DC planning at this time. Aware RNCM remains available for any emerging needs. DC PLAN: SNF vs Home-TBD, RNCM continue to follow. RAYNE Murrell
--- NOTE | 2019-06-05 15:59 | ECHOD_ITS ---
Reason For Study: A. fib Procedure This was a 2D Doppler, Color Flow transthoracic echocardiogram. Exam performed portable in patient room. Left Ventricle Normal size and thickness. The estimated ejection fraction is 65 %. Unable to assess diastolic dysfunction due to arrhythmia. No regional wall motion abnormalities noted. Right Ventricle Normal size and thickness. Normal systolic function. Atria Normal left atrium. Normal right atrium. Normal atrial septum. Mitral Valve The mitral valve is structurally normal. No prolapse or stenosis seen. Mild mitral annular calcification extending into the posterior leaflet. Tricuspid Valve Normal tricuspid valve. Trivial tricuspid valve insufficiency. Unable to estimate RV systolic pressure due to insufficient tricuspid regurgitant envelope. Aortic Valve Trisinus/trileaflet aortic valve. Pulmonic Valve Normal pulmonic valve. Great Vessels Calcified aortic root. Normal arch. Normal inferior vena cava. Inferior vena cava collapse with sniff. Pericardium/Pleural No pericardial effusion. MMode/2D Measurements & Calculations LVIDd: 3.3 cm IVSd: 1.2 cm Ao root diam: 3.6 cm LVIDs: 2.0 cm LVPWd: 1.3 cm RVDd: 3.4 cm FS: 39.0 % LAV(MOD-sp4): 45.1 ml LA A4 area: 16.8 cm2 LA dimension(2D): 3.6 cm RA A4 area: 12.6 cm2 Doppler Measurements & Calculations MV E max nikolas: 98.4 cm/sec Ao V2 max: 130.1 cm/sec LV V1 max: 71.8 cm/sec Ao max P.8 mmHg LV V1 max P.1 mmHg PA V2 max: 66.4 cm/sec Interpretation Summary The estimated ejection fraction is 65 %. Unable to assess diastolic dysfunction due to arrhythmia. Trivial tricuspid valve insufficiency. Unable to estimate RV systolic pressure due to insufficient tricuspid regurgitant envelope. Compared to echo report dated 11/17/2009, LV function has remained the same, however the patient now appears to be in atrial fibrillation. Ordering Physician: Colten Castorena Referring Physician: MD Colt Amado Performed By: Christelle Yeung RDCS
[2019-06-05 16:24] LABS: BNP,B-Type NATRIURETIC PEPTIDE 220.9 pg/mL (0-100)
[2019-06-05] MEDS: Aspirin 81 MG TAB.CHEW PO (17:32)
[2019-06-06] VITALS (15 sets, daily range): BP systolic 84–119; BP diastolic 56–73; PULSE 71–141; RESP 18–20; TEMP 36.1–36.8; O2SAT 94–98
[2019-06-06] MEDS: dilTIAZem 25 MG/5 ML Vial 10 MG IV BOLUS (00:22)
[2019-06-06 07:21] LABS: Absolute Lymphocyte Count 0.85 X10^3/uL (0.83-4.51); Absolute Neutrophil Count 4.5 X10^3/uL (2.0-7.7); Basophil# 0.04 X10^3/uL; Basophil% 0.7 % (0-1); Eosinophils% 1.6 % (0-5); Hematocrit 33.5 % (40-54); Hemoglobin 11.7 g/dL (13.0-16.5); Lymphocyte # 0.85 X10^3/ul (4.0); Lymphocyte % 13.9 % (19-41); Mean Corp Hgb Conc 34.9 g/dL (32-36); Mean Corpuscular Volume 91.5 fL (80-94); Mean Platelet Vol. 8.5 fl (6.2-12.0); Monocyte# 0.62 X10^3/uL; Monocyte% 10.1 % (0-10); NRBC Flagged by Analyzer 0 % (0-5); Neutrophil # 4.49 X10^3/uL (2.7-7.7); Neutrophil % 73.4 % (47-70); Platelet Count 215 K/mm3 (150-450); RBC Distribution Width CV 12.6 % (11.6-14.6); RBC Distribution Width SD 41.7 fl (35.1-43.9); Red Blood Count 3.66 M/mm3 (4.6-6.2); White Blood Count 6.1 K/mm3 (4.4-11.0)
[2019-06-06 07:53] LABS: Anion Gap 7 (5-15); BUN 32 mg/dL (7-18); BUN/Creat Ratio 42.2 RATIO (10-20); Calcium,Total 8.8 mg/dL (8.5-10.1); Chloride 106 mmol/L (98-107); Creatinine, Serum 0.76 mg/dL (0.70-1.30); EST Glomerular Filtration Rate 105 mL/min (>60); Est Glom Filt Rate - Afr Amer 127 mL/min (>60); Glucose 122 mg/dL (74-106); Magnesium 1.9 mg/dL (1.6-2.6); Potassium 3.3 mmol/L (3.5-5.1); Sodium Level 139 mmol/L (136-145); Thyroid Stim Hormone (TSH) 1.45 uIU/mL (0.358-3.74)
[2019-06-06] MEDS: 0.9% Saline Lock 10 ML Syringe IV (09:23)
[2019-06-06] MEDS: Allopurinol 300 MG Tablet PO (09:29)
[2019-06-06] MEDS: Aspirin 81 MG TAB.CHEW PO (09:29)
[2019-06-06] MEDS: amLODIPine 5 MG Tablet PO (09:29)
[2019-06-06] MEDS: Memantine Hydrochloride 10 MG Tablet PO ×2 (09:29→21:27)
[2019-06-06] MEDS: Enoxaparin 40 MG/0.4 ML Syringe SC (09:38)
[2019-06-06] MEDS: Metoprolol Tartrate 50 MG Tablet PO ×2 (10:55→21:26)
--- NOTE | 2019-06-06 14:36 | PCM.PN.HOSP ---
Patient Problems: Active and Suspected Problems Bilateral pneumonia (Acute) Weakness (Acute) Reason for Visit: pneumonia Subjective: Breathing well. Has been tachycardic. Vitals/I&O's: Vital Signs Temp Pulse Resp BP Pulse Ox 36.1 C L 130 H 18 117/73 97 06/06/19 09:34 06/06/19 10:55 06/06/19 09:34 06/06/19 09:34 06/06/19 09:34 Oxygen Delivery Method Room Air Weight: 99.4 kg Body Mass Index (BMI) 33.3 Intake and Output for Last 24 Hours 06/04/19 06/05/19 06/06/19 23:59 23:59 23:59 Intake Total 1784 460 / 460 Output Total 475 / 475 Balance 1784 - / General: Alert, No apparent distress HEENT: Atraumatic, Normocephalic Oral: Moist Mucosa, No Gingival or Mucosal Lesions/ Ulcerations Neck: No Nodes, Trachea Midline Lungs: Clear to auscultation, Normal air movement, No rhonchi, No wheeze Cardiovascular: Normal S1, Normal S2, Tachycardic Abdomen: Bowel Sounds Present, Soft, Non Tender, Non-Distended, No Hepato-splenomegaly Extremities: No edema, No Calf Tenderness Psych/Mental Status: Normal Affect, Appropriate Microbiology Past 72 Hours 06/05/19 11:05 Mucosa - Nose Respiratory Panel (PCR) - Final 06/05/19 11:05 Urine, Clean Catch Legionella Antigen - Final 06/05/19 11:05 Urine, Clean Catch Streptococcus pneumoniae Antigen (M - Final Laboratory Results 06/05/19 09:40: B-Natriuretic Peptide 220.9 H 06/05/19 11:05: COVID-19 (THADDEUS) Pending 06/06/19 07:07: WBC 6.1, RBC 3.66 L, Hgb 11.7 L, Hct 33.5 L, MCV 91.5, MCH 32.0, MCHC 34.9, RDW Std Deviation 41.7, RDW Coeff of Bhavani 12.6, Plt Count 215, MPV 8.5, Immature Gran % (Auto) 0.300, Neut % (Auto) 73.4 H, Lymph % (Auto) 13.9 L, [place] % (Auto) 10.1 H, Eos % (Auto) 1.6, Baso % (Auto) 0.7, Absolute Neuts (auto) 4.5, Absolute Lymphs (auto) 0.85, Nucleated RBC % 0 06/06/19 07:07: Sodium 139, Potassium 3.3 L, Chloride 106, Carbon Dioxide 26.0, Anion Gap 7, BUN 32 H, Creatinine 0.76, Estim Creat Clear Calc 57.00, Est GFR (MDRD) Af Amer 127, Est GFR (MDRD) Non-Af 105, BUN/Creatinine Ratio 42.2 H, Glucose 122 H, Calcium 8.8, Magnesium 1.9, TSH 1.45 Current Medications Acetaminophen (Tylenol) 650 mg PO Q6H PRN PRN PRN Reason: Pain Score 1-10/Temp > 100.7 F Allopurinol (Zyloprim) 300 mg PO DAILY [facility] Last Admin: 06/06/19 09:29 Dose: 300 mg Documented by: Amlodipine Besylate (Norvasc) 5 mg PO DAILY [facility] Last Admin: 06/06/19 09:29 Dose: 5 mg Documented by: Aspirin (Aspirin, Baby) 81 mg PO DAILY@0800 [facility] Last Admin: 06/06/19 09:29 Dose: 81 mg Documented by: Dextrose (D50w Syringe) 0 gm IV X1 PRN; Protocol PRN Reason: Hypoglycemia Enoxaparin Sodium (Lovenox) 40 mg SC DAILY [facility] Last Admin: 06/06/19 09:38 Dose: 40 mg Documented by: Glucagon () 1 mg IM .X1 PRN PRN Reason: Hypoglycemia Ceftriaxone Sodium 2 gm/ (Sodium Chloride) 50 mls @ 100 mls/hr IV Q24 [facility] Stop: 06/13/19 10:01 Last Infusion: 06/06/19 10:03 Dose: Infused Documented by: Azithromycin 500 mg/ Dextrose 255 mls @ 250 mls/hr IV Q24 [facility] Stop: 06/11/19 10:01 Last Admin: 06/06/19 10:03 Dose: 250 mls/hr Documented by: Sodium Chloride () 250 mls @ 15 mls/hr IV .[id number] PRN PRN Reason: Saline Flush Sodium Chloride () 250 mls @ 15 mls/hr IV .[id number] PRN PRN Reason: Additional IVPB Infusion Memantine (Namenda) 10 mg PO BID [facility] Last Admin: 06/06/19 09:29 Dose: 10 mg Documented by: Metoprolol Tartrate (Lopressor (Beta Carson)) 50 mg PO BID [facility] Last Admin: 06/06/19 10:55 Dose: 50 mg Documented by: Nutritional Formula (Lactose Free) (Ensure Enlive) 120 ml PO 4X/DAY [facility] Last Admin: 06/06/19 09:29 Dose: 120 ml Documented by: Pravastatin Sodium (Pravachol) 80 mg PO QHS [facility] Sodium Chloride () 10 - 40 ml IV UD PRN PRN Reason: SALINE FLUSH Last Admin: 06/06/19 09:23 Dose: 10 ml Documented by: Tamsulosin HCl (Flomax) 0.4 mg PO QHS [facility] STROKE Vital Signs/Narrative: Vital Signs Pulse 06/06/19 10:55 130 H 06/06/19 10:53 141 H Medical Necessity - Tobacco Use Smoking Status: Current every day smoker Assessment/Plan All Active Problems Bilateral pneumonia (Acute) Weakness (Acute) 1. Possible pneumococcal pneumonia: Other possibilities could be acute CHF exacerbation. Clinically patient does not appear to be toxic. We will treat the patient empirically for pneumococcal pneumonia with Rocephin and azithromycin. Check sputum culture, urinary antigens but also for COVID though my suspicion for COVID is low. strep and legionella antigens negative. respiratory panel negative. 2. Atrial fibrillation with rate control: New diagnosis though I suspect A. fib is probably more chronic at this point time. Patient be on aspirin. Is currently rate controlled. Check an echocardiogram to evaluate his ejection fraction. Patient may require to be on full dose anticoagulation but why the patient on telemetry to further monitor. Clinically patient does not appear to be volume overloaded so not and still CHF measures with fluid restrictions at this time. Tachycardic, will start metoprolol 50 BID. 3. Hypokalemia: We will replace. Magnesium normal 4. Debility: PT and OT evaluate and treat. Patient may require retirement facility upon discharge. Case management to help with those matters if necessary. 5. VTE prophylaxis: With enoxaparin Inpatient E&M: [id number] Subs Hosp L2
[2019-06-06] MEDS: Pravastatin 80 MG Tablet PO (21:27)
[2019-06-06] MEDS: Tamsulosin HCl 0.4 MG Capsule PO (21:27)
[2019-06-07] VITALS (15 sets, daily range): BP systolic 102–133; BP diastolic 54–74; PULSE 90–128; RESP 16–18; TEMP 36.4–36.7; O2SAT 94–97
[2019-06-07 06:58] LABS: Anion Gap 10 (5-15); BUN 36 mg/dL (7-18); BUN/Creat Ratio 39.6 RATIO (10-20); Calcium,Total 8.8 mg/dL (8.5-10.1); Chloride 106 mmol/L (98-107); Creatinine, Serum 0.91 mg/dL (0.70-1.30); EST Glomerular Filtration Rate 85 mL/min (>60); Est Glom Filt Rate - Afr Amer 103 mL/min (>60); Estimated Creatinine Clearance 62.64 ml/min; Glucose 120 mg/dL (74-106); Potassium 3.7 mmol/L (3.5-5.1); Sodium Level 140 mmol/L (136-145)
--- NOTE | 2019-06-07 07:31 | NURSING ---
Informed son Elías, of fall last evening. Son wanting to know results of covid test and when his father may come home. Advised that the test results were not back yet and the hospitalist has not rounded yet this morning and more updates would be available later today.
[2019-06-07] MEDS: Metoprolol Tartrate 50 MG Tablet PO ×2 (09:37→20:53)
[2019-06-07] MEDS: Allopurinol 300 MG Tablet PO (09:37)
[2019-06-07] MEDS: Memantine Hydrochloride 10 MG Tablet PO ×2 (09:37→20:53)
[2019-06-07] MEDS: Aspirin 81 MG TAB.CHEW PO (09:37)
[2019-06-07] MEDS: amLODIPine 5 MG Tablet PO (09:37)
[2019-06-07] MEDS: 0.9% Saline Lock 10 ML Syringe IV (09:38)
[2019-06-07] MEDS: Enoxaparin 40 MG/0.4 ML Syringe SC (09:38)
--- NOTE | 2019-06-07 11:09 | NURSING ---
Addendum entered by Erika Jiang 06/07/19 15:55: Son called in multiple times this AM over an hour. Staff reassured him that nurse would call when able. This RN was able to speak with son and notify him that patient was just trying to say hi this morning when phone call was missed. Notified him that patient will likely not be d/c'ed today. Original Note: attempted to call and update son Elías at this time- unable to reach. Pt then called his home-- pt states his son hung up on him. Will try again later
--- NOTE | 2019-06-07 11:14 | CASEMGMT ---
Addendum entered by Katy Cedeno 06/07/19 11:58: Return call from Lisandra Vance at [facility]. Pt just started with the [employer] program 1-2 weeks ago and services have started yet. Referrals have been made for a medical alert system and home delivered meals. No request has been made by pt or family for health care aide. Per sherrie Fry son Jim lives with pt and is his primary child care. SW will continue to follow. SONNY Cazares Original Note: Social Work Per RNCM pt has services through [facility]. Phone call and message left for Lisandra Vance CM requesting return call to notify this worker of services provided. Pt may possibly need SNF at d/c. Covid results pending at this time, will await results prior to pursuing SNF. SONNY Cazares
--- NOTE | 2019-06-07 14:38 | PN_ITS ---
Patient Problems: Active and Suspected Problems Bilateral pneumonia (Acute) Weakness (Acute) Reason for Visit: pneumonia Subjective: breathing well. Vitals/I&O's: Vital Signs Temp Pulse Resp BP Pulse Ox 36.5 C L 113 H 16 104/69 94 06/07/19 14:03 06/07/19 14:03 06/07/19 14:03 06/07/19 14:03 06/07/19 14:03 Oxygen Delivery Method Room Air Weight: 99.4 kg Body Mass Index (BMI) 33.3 Intake and Output for Last 24 Hours 06/05/19 06/06/19 06/07/19 23:59 23:59 23:59 Intake Total 1785 / 1785 1708.25 / 1708.25 1061.75 / 1061.75 Output Total 1050 / 1050 500 / 500 Balance 1785 / 1785 658.25 / 658.25 561.75 / 561.75 General: - - pleasantly confused. HEENT: Atraumatic, Normocephalic Oral: Moist Mucosa, No Gingival or Mucosal Lesions/ Ulcerations Neck: No Nodes, Trachea Midline Lungs: Clear to auscultation, Normal air movement, No rhonchi, No wheeze, No rales Cardiovascular: Regular rate, Regular Rhythm, Normal S1, Normal S2, No murmurs Abdomen: Bowel Sounds Present, Soft, Non Tender, Non-Distended, No Hepato- splenomegaly Extremities: No edema, No Calf Tenderness Microbiology Past 72 Hours 06/05/19 11:05 Mucosa - Nose Respiratory Panel (PCR) - Final 06/05/19 11:05 Urine, Clean Catch Legionella Antigen - Final 06/05/19 11:05 Urine, Clean Catch Streptococcus pneumoniae Antigen (M - Final Laboratory Results 06/07/19 06:26: Sodium 140, Potassium 3.7, Chloride 106, Carbon Dioxide 24.0, Anion Gap 10, BUN 36 H, Creatinine 0.91, Estim Creat Clear Calc 62.64, Est GFR (MDRD) Af Amer 103, Est GFR (MDRD) Non-Af 85, BUN/Creatinine Ratio 39.6 H, Glucose 120 H, Calcium 8.8 Current Medications Acetaminophen (Tylenol) 650 mg PO Q6H PRN PRN PRN Reason: Pain Score 1-10/Temp > 100.7 F Allopurinol (Zyloprim) 300 mg PO DAILY [facility] Last Admin: 06/07/19 09:37 Dose: 300 mg Documented by: Amlodipine Besylate (Norvasc) 5 mg PO DAILY [facility] Last Admin: 06/07/19 09:37 Dose: 5 mg Documented by: Aspirin (Aspirin, Baby) 81 mg PO DAILY@0800 [facility] Last Admin: 06/07/19 09:37 Dose: 81 mg Documented by: Dextrose (D50w Syringe) 0 gm IV X1 PRN; Protocol PRN Reason: Hypoglycemia Enoxaparin Sodium (Lovenox) 40 mg SC DAILY [facility] Last Admin: 06/07/19 09:38 Dose: 40 mg Documented by: Glucagon () 1 mg IM .X1 PRN PRN Reason: Hypoglycemia Ceftriaxone Sodium 2 gm/ (Sodium Chloride) 50 mls @ 100 mls/hr IV Q24 [facility] Stop: 06/13/19 10:01 Last Infusion: 06/07/19 11:34 Dose: Infused Documented by: Azithromycin 500 mg/ Dextrose 255 mls @ 250 mls/hr IV Q24 [facility] Stop: 06/11/19 10:01 Last Infusion: 06/07/19 10:40 Dose: Infused Documented by: Sodium Chloride () 250 mls @ 15 mls/hr IV .[id number] PRN PRN Reason: Saline Flush Last Infusion: 06/07/19 11:07 Dose: 0 mls/hr Documented by: Sodium Chloride () 250 mls @ 15 mls/hr IV .[id number] PRN PRN Reason: Additional IVPB Infusion Memantine (Namenda) 10 mg PO BID [facility] Last Admin: 06/07/19 09:37 Dose: 10 mg Documented by: Metoprolol Tartrate (Lopressor (Beta Carson)) 50 mg PO BID [facility] Last Admin: 06/07/19 09:37 Dose: 50 mg Documented by: Nutritional Formula (Lactose Free) (Ensure Enlive) 120 ml PO 4X/DAY [facility] Last Admin: 06/07/19 14:07 Dose: 120 ml Documented by: Pravastatin Sodium (Pravachol) 80 mg PO QHS [facility] Last Admin: 06/06/19 21:27 Dose: 80 mg Documented by: Sodium Chloride () 10 - 40 ml IV UD PRN PRN Reason: SALINE FLUSH Last Admin: 06/07/19 09:38 Dose: 10 ml Documented by: Tamsulosin HCl (Flomax) 0.4 mg PO QHS [facility] Last Admin: 06/06/19 21:27 Dose: 0.4 mg Documented by: STROKE Vital Signs/Narrative: Vital Signs Temp Pulse Resp BP Pulse Ox 06/07/19 14:03 36.5 C L 113 H 16 104/69 94 Medical Necessity - Tobacco Use Smoking Status: Current every day smoker Assessment/Plan All Active Problems Bilateral pneumonia (Acute) Weakness (Acute) 1. Possible pneumococcal pneumonia: Improving Clinically patient does not appear to be toxic. We will treat the patient empirically for pneumococcal pneumonia with Rocephin and azithromycin. Check sputum culture, urinary antigens but also for COVID though my suspicion for COVID is low. strep and legionella antigens negative. respiratory panel negative. Strep, legionell antigens negative. resp panel negative. 2. Atrial fibrillation with rate control: New diagnosis though I suspect A. fib is probably more chronic at this point time. Clinically patient does not appear to be volume overloaded so not and still CHF measures with fluid restrictions at this time. Continue metoprolol 50 BID. Anticoagulate with apixaban 3. Hypokalemia: We will replace. Magnesium normal 4. Debility: PT and OT evaluate and treat. Patient may require senior care facility upon discharge. Case management to help with those matters if necessary. 5. VTE prophylaxis: anticoagulated. CHRISTIN farley's Dtr, Seema Bonner. She will consider home with home care v SNF upon discharge. Inpatient E&M: [id number] Subs Hosp L2
--- NOTE | 2019-06-07 20:12 | NURSING ---
This nurse notified Josselin, Nursing fishing tool supervisor, of conversation with Dr. Lockett regarding COVID negative result for patient. Dr. Lockett wants morning rounding doctor to make decision if to move patient to other floor and also to make decision on isolation order continuation. For tonight, do nothing, keep in isolation and do not move. Also Dr. Lockett stated it was OK to tell pt. at this time of negative result.
[2019-06-07] MEDS: Pravastatin 80 MG Tablet PO (20:53)
[2019-06-07] MEDS: Tamsulosin HCl 0.4 MG Capsule PO (20:53)
[2019-06-07] MEDS: APIXABAN 5 MG TABLET PO (20:53)
--- NOTE | 2019-06-07 21:00 | NURSING ---
Addendum entered by Josselin Payne 06/08/19 02:41: time of notification was actually 1999 Original Note: Lab called with negative covid result , RN notified
[2019-06-08] VITALS (7 sets, daily range): BP systolic 94–104; BP diastolic 62–65; PULSE 80–102; RESP 16–18; TEMP 36.6–36.8; O2SAT 94–97
--- NOTE | 2019-06-08 09:31 | CASEMGMT ---
Addendum entered by Katy Cedeno 06/08/19 12:51: Social Work Return call from [facility] and they are not able to accept pt. Return call from [facility] and they have no beds available. Spoke with Nancy at [facility] and they do have beds available. Referral faxed. Will await return call for determination. SONNY Cazares Addendum entered by Katy Cedeno 06/08/19 11:25: Social Work No return call from Dgt. Phone call to pt son who states he stays with pt during the day but pt is alone at night and pt has fallen 3 times since he returned home from [facility]. SW informed that pt dgt not returning call and son gave cell number for dgt Seema [phone]. Son says he does not have a preference on SNF placement. Phone call placed to dgt Seema. Seema agreeable to SNF placement and prefers [facility]. SW explained [facility] is not currently accepting pt. Provided [place] options of [facility], [facility] and [facility]. Seema with no preference on facility. VM left with [facility] and [facility]. Spoke with Janelle at [facility] and they will review referral and let SW know if they can accept pt. SONNY Cazares Original Note: Social Work Results for Covid test are negative. Therapy is recommending SNF for pt due to cognitive concerns and functional decline. Phone call placed to pt daughter Seema and VM left requesting return call to discuss discharge planning. SW will await call back. SONNY Cazares
[2019-06-08] MEDS: Metoprolol Tartrate 50 MG Tablet PO (09:32)
[2019-06-08] MEDS: Memantine Hydrochloride 10 MG Tablet PO (09:33)
[2019-06-08] MEDS: Aspirin 81 MG TAB.CHEW PO (09:33)
[2019-06-08] MEDS: amLODIPine 5 MG Tablet PO (09:33)
[2019-06-08] MEDS: APIXABAN 5 MG TABLET PO (09:33)
[2019-06-08] MEDS: Allopurinol 300 MG Tablet PO (09:33)
[2019-06-08] MEDS: 0.9% Saline Lock 10 ML Syringe IV (09:44)
--- NOTE | 2019-06-08 10:45 | CASEMGMT ---
Pt daughter Seema Bonner states she is HCPOA. Seema made aware that documents are not on file at [facility]. SONNY Cazares
--- NOTE | 2019-06-08 12:21 | PN_ITS ---
Patient Problems: Active and Suspected Problems Bilateral pneumonia (Acute) Weakness (Acute) Reason for Visit: pneumonia Subjective: breathing well. wants to go home. Vitals/I&O's: Vital Signs Temp Pulse Resp BP Pulse Ox 36.8 C 102 H 18 104/63 94 06/08/19 09:30 06/08/19 09:32 06/08/19 09:30 06/08/19 09:30 06/08/19 09:30 Oxygen Delivery Method Room Air Weight: 99.4 kg Body Mass Index (BMI) 33.3 Intake and Output for Last 24 Hours 06/06/19 06/07/19 06/08/19 23:59 23:59 23:59 Intake Total 1708.25 / 1708.25 1754.00 / 1754.00 705 / 705 Output Total 1050 / 1050 900 / 900 Balance 658.25 / 658.25 854.00 / 854.00 705 / 705 General: Alert, No apparent distress HEENT: Atraumatic, Normocephalic Oral: Moist Mucosa, No Gingival or Mucosal Lesions/ Ulcerations Neck: No Nodes, Trachea Midline Lungs: Clear to auscultation, Normal air movement, No rhonchi, No wheeze Cardiovascular: Regular rate, Regular Rhythm, Normal S1, Normal S2, No murmurs Abdomen: Bowel Sounds Present, Soft, Non Tender, Non-Distended, No Hepato- splenomegaly Extremities: No edema, No Calf Tenderness Skin: No rashes, No breakdown Psych/Mental Status: Normal Affect, Appropriate Microbiology Past 72 Hours 06/05/19 11:05 Mucosa - Nose Respiratory Panel (PCR) - Final 06/05/19 11:05 Urine, Clean Catch Legionella Antigen - Final 06/05/19 11:05 Urine, Clean Catch Streptococcus pneumoniae Antigen (M - F inal Laboratory Results 06/05/19 11:05: COVID-19 (THADDEUS) Not Detected Current Medications Acetaminophen (Tylenol) 650 mg PO Q6H PRN PRN PRN Reason: Pain Score 1-10/Temp > 100.7 F Allopurinol (Zyloprim) 300 mg PO DAILY [facility] Last Admin: 06/08/19 09:33 Dose: 300 mg Documented by: Amlodipine Besylate (Norvasc) 5 mg PO DAILY [facility] Last Admin: 06/08/19 09:33 Dose: 5 mg Documented by: Apixaban (Eliquis) 5 mg PO BID [facility] Last Admin: 06/08/19 09:33 Dose: 5 mg Documented by: Aspirin (Aspirin, Baby) 81 mg PO DAILY@0800 [facility] Last Admin: 06/08/19 09:33 Dose: 81 mg Documented by: Dextrose (D50w Syringe) 0 gm IV X1 PRN; Protocol PRN Reason: Hypoglycemia Glucagon () 1 mg IM .X1 PRN PRN Reason: Hypoglycemia Ceftriaxone Sodium 2 gm/ (Sodium Chloride) 50 mls @ 100 mls/hr IV Q24 [facility] Stop: 06/13/19 10:01 Last Admin: 06/08/19 10:49 Dose: 100 mls/hr Documented by: Azithromycin 500 mg/ Dextrose 255 mls @ 250 mls/hr IV Q24 [facility] Stop: 06/11/19 10:01 Last Infusion: 06/08/19 10:48 Dose: Infused Documented by: Sodium Chloride () 250 mls @ 15 mls/hr IV .[id number] PRN PRN Reason: Saline Flush Last Infusion: 06/07/19 17:44 Dose: 0 mls/hr Documented by: Sodium Chloride () 250 mls @ 15 mls/hr IV .[id number] PRN PRN Reason: Additional IVPB Infusion Memantine (Namenda) 10 mg PO BID [facility] Last Admin: 06/08/19 09:33 Dose: 10 mg Documented by: Metoprolol Tartrate (Lopressor (Beta Carson)) 50 mg PO BID [facility] Last Admin: 06/08/19 09:32 Dose: 50 mg Documented by: Nutritional Formula (Lactose Free) (Ensure Enlive) 120 ml PO 4X/DAY [facility] Last Admin: 06/08/19 09:31 Dose: Not Given Documented by: Pravastatin Sodium (Pravachol) 80 mg PO QHS [facility] Last Admin: 06/07/19 20:53 Dose: 80 mg Documented by: Sodium Chloride () 10 - 40 ml IV UD PRN PRN Reason: SALINE FLUSH Last Admin: 06/08/19 09:44 Dose: 10 ml Documented by: Tamsulosin HCl (Flomax) 0.4 mg PO QHS [facility] Last Admin: 06/07/19 20:53 Dose: 0.4 mg Documented by: STROKE Vital Signs/Narrative: Vital Signs Temp Pulse Resp BP Pulse Ox 06/08/19 09:32 102 H 06/08/19 09:30 36.8 C 102 H 18 104/63 94 Medical Necessity - Tobacco Use Smoking Status: Current every day smoker Assessment/Plan All Active Problems Bilateral pneumonia (Acute) Weakness (Acute) 1. Possible pneumococcal pneumonia: Improving Clinically patient does not appear to be toxic. We will treat the patient empirically for pneumococcal pneumonia with Rocephin and azithromycin. COVID-19 negative. 2. Atrial fibrillation with rate control: New diagnosis though I suspect A. fib is probably more chronic at this point time. Clinically patient does not appear to be volume overloaded so not and still CHF measures with fluid restrictions at this time. Continue metoprolol 50 BID. Anticoagulate with apixaban 3. Hypokalemia: We will replace. Magnesium normal 4. Debility: PT and OT evaluate and treat. Patient may require alf facility upon discharge. Case management to help with those matters if necessary. 5. VTE prophylaxis: anticoagulated. 6. Dispo: family unable to accommodate the pateint's needs at this time. Plan is to DC to SNF. [facility], once they find an accepting facility, pt can be discharged. Inpatient E&M: 91337 Subs Hosp L2
--- NOTE | 2019-06-08 12:32 | PCM.TXEXTCAR ---
- Diet 06/05/19 15:59 Diet: Cardiac/Low Cholesterol Food consistency:: Regular Liquid Consistency:: Regular/Thin Is pt able to select menu?: No Diet Comments: has no teeth-soft or cut up food - Routine Orders/Code Status Routine Lab Work: CBC, BMP Code Status: Full Code - Therapies Weight Bearing: Full weight bearing Physical Therapy: Eval and Treat Occupational Therapy: Eval and Treat - Allergies/Procedures Done in Hospital Allergies/Adverse Reactions: Allergies No Known Allergies Allergy (Verified 03/16/19 09:53) Procedures: None - Type of Care/Length of Stay Estimated LOS: Convalescent Care Less Than 30 days Type of Care Needed: Skilled Rehab Potential: Fair Prognosis: Fair - Additional Orders/Day of Discharge Day of Discharge: 06/08/19 - Dietary and Speech Recommendations Dietitian Recommendations/Changes: Contine cardiac diet and ensure enlive w/ medpass. If PO intake at meals becomes poor, recommend regular diet. - Follow Up Care Primary Care Physician: Amado Gregory MD [Primary Care Provider] - Within 2 Weeks Please Follow Up With[facility] Cardiology for atrial fibrillation When: 4-6 weeks.
--- NOTE | 2019-06-08 12:35 | PCM.DC.SUM ---
Discharge Date and Diagnosis - Problem List Patient Problems: Active and Suspected Problems Bilateral pneumonia (Acute) Weakness (Acute) Afib (Acute) Date of Admission: 06/05/19 Date of Discharge: 06/08/19 - Primary Discharge Diagnosis Active and Suspected Problems Bilateral pneumonia (Acute) Weakness (Acute) 1. Possible pneumococcal pneumonia: Improving Clinically patient does not appear to be toxic. We will treat the patient empirically for pneumococcal pneumonia with Rocephin and azithromycin. COVID-19 negative. Discharge with Augmentin to complete 7 day course of antibiotics. 2. Atrial fibrillation with rate control: New diagnosis though I suspect A. fib is probably more chronic at this point time. Clinically patient does not appear to be volume overloaded so not and still CHF measures with fluid restrictions at this time. Continue metoprolol 50 BID. Anticoagulate with apixaban. Follow up with cardiology as outpt. Echo shows an EF of 65%. 3. Debility: to SNF. - Secondary Discharge Diagnosis Chronic Problems Dementia (Chronic) Debility (Chronic) HTN (hypertension) (Chronic) HLD (hyperlipidemia) (Chronic) BPH (benign prostatic hyperplasia) (Chronic) Hospital Course and Treatment Imaging Results: Clinical Impression(s) from Imaging Studies Chest X-Ray 06/05/19 09:50 IMPRESSION: Patchy peripherally located bilateral infiltrates more prominent on the right side as described. In the appropriate clinical setting, Covid should be ruled out. N.B. : The above information has been verbally conveyed by Gerald Kaplan to Bertin Clarke MD, on 06/05/2019 10:25:22 (ET). Electronically Signed: Gerald Kaplan, at 10:27 EDT , Service support , ADDENDUM: 06/05/19 1033 IMPRESSION: Patchy peripherally located bilateral infiltrates more prominent on the right side as described. In the appropriate clinical setting, Covid should be ruled out. N.B. : The above information has been verbally conveyed by Gerald Kaplan to Bertin Clarke MD, on 06/05/2019 10:25:22 (ET). Electronically Signed: Gerald Kaplan, at 10:27 EDT , Service support , Operations: None Procedures: 2-D Echocardiogram - The estimated ejection fraction is 65 %. Unable to assess diastolic dysfunction due to arrhythmia. Trivial tricuspid valve insufficiency. Unable to estimate RV systolic pressure due to insufficient tricuspid regurgitant envelope. Compared to echo report dated 11/17/2009, LV function has remained the same, however the patient now appears to be in atrial fibrillation. Summary of Care Provided: The patient is a 78 year old M with weakness. Chest x-ray was concerning for pneumonia patient was started on ceftriaxone and azithromycin. Patient was also evaluated for COVID-19 though it seems unlikely that he would have that. The COVID-19 testing came back negative. Patient overall has a steadily improved from a respiratory standpoint and will be transitioned over to Augmentin for total of 7 days of antibiotics. Patient was also found to be in rate controlled atrial fibrillation. Patient was not initially treated but then he was having issues with tachycardia sporadically during his admission and started on metoprolol 50 mg twice daily. This seems to have helped control his heart rate. Patient had echocardiogram showed an EF of 65%. Patient will be started on apixaban for anticoagulation. Patient will follow-up with cardiology as outpatient. Patient was probably brought in because he was just weak overall and was seen by therapy is recommending additional therapy needs. Case management discussed with family and they are unable to accommodate his needs at this time and desire for him to go to a intermediate facility. Once intermediate facility has accepted the patient then patient will be discharged. [] Patient Problems: Active and Suspected Problems Bilateral pneumonia (Acute) Weakness (Acute) Afib (Acute) - Physical Exam Vitals/I&O's: Vital Signs Temp Pulse Resp BP Pulse Ox 36.8 C 102 H 18 104/63 94 06/08/19 09:30 06/08/19 09:32 06/08/19 09:30 06/08/19 09:30 06/08/19 09:30 Oxygen Delivery Method Room Air Weight: 99.4 kg Body Mass Index (BMI) 33.3 Intake and Output for Last 24 Hours 06/06/19 06/07/19 06/08/19 23:59 23:59 23:59 Intake Total 1708.25 / 1708.25 1754.00 / 1754.00 705 / 705 Output Total 1050 / 1050 900 / 900 Balance 658.25 / 658.25 854.00 / 854.00 705 / 705 Microbiology Past 72 Hours 06/05/19 11:05 Mucosa - Nose Respiratory Panel (PCR) - Final 06/05/19 11:05 Urine, Clean Catch Legionella Antigen - Final 06/05/19 11:05 Urine, Clean Catch Streptococcus pneumoniae Antigen (M - Final Laboratory Results 06/05/19 11:05: COVID-19 (THADDEUS) Not Detected Current Medications Acetaminophen (Tylenol) 650 mg PO Q6H PRN PRN PRN Reason: Pain Score 1-10/Temp > 100.7 F Allopurinol (Zyloprim) 300 mg PO DAILY [facility] Last Admin: 06/08/19 09:33 Dose: 300 mg Documented by: Amlodipine Besylate (Norvasc) 5 mg PO DAILY [facility] Last Admin: 06/08/19 09:33 Dose: 5 mg Documented by: Apixaban (Eliquis) 5 mg PO BID [facility] Last Admin: 06/08/19 09:33 Dose: 5 mg Documented by: Aspirin (Aspirin, Baby) 81 mg PO DAILY@0800 [facility] Last Admin: 06/08/19 09:33 Dose: 81 mg Documented by: Dextrose (D50w Syringe) 0 gm IV X1 PRN; Protocol PRN Reason: Hypoglycemia Glucagon () 1 mg IM .X1 PRN PRN Reason: Hypoglycemia Ceftriaxone Sodium 2 gm/ (Sodium Chloride) 50 mls @ 100 mls/hr IV Q24 [facility] Stop: 06/13/19 10:01 Last Admin: 06/08/19 10:49 Dose: 100 mls/hr Documented by: Azithromycin 500 mg/ Dextrose 255 mls @ 250 mls/hr IV Q24 [facility] Stop: 06/11/19 10:01 Last Infusion: 06/08/19 10:48 Dose: Infused Documented by: Sodium Chloride () 250 mls @ 15 mls/hr IV .[id number] PRN PRN Reason: Saline Flush Last Infusion: 06/07/19 17:44 Dose: 0 mls/hr Documented by: Sodium Chloride () 250 mls @ 15 mls/hr IV .[id number] PRN PRN Reason: Additional IVPB Infusion Memantine (Namenda) 10 mg PO BID [facility] Last Admin: 06/08/19 09:33 Dose: 10 mg Documented by: Metoprolol Tartrate (Lopressor (Beta Carson)) 50 mg PO BID [facility] Last Admin: 06/08/19 09:32 Dose: 50 mg Documented by: Nutritional Formula (Lactose Free) (Ensure Enlive) 120 ml PO 4X/DAY [facility] Last Admin: 06/08/19 09:31 Dose: Not Given Documented by: Pravastatin Sodium (Pravachol) 80 mg PO QHS [facility] Last Admin: 06/07/19 20:53 Dose: 80 mg Documented by: Sodium Chloride () 10 - 40 ml IV UD PRN PRN Reason: SALINE FLUSH Last Admin: 06/08/19 09:44 Dose: 10 ml Documented by: Tamsulosin HCl (Flomax) 0.4 mg PO QHS [facility] Last Admin: 06/07/19 20:53 Dose: 0.4 mg Documented by: Discharge Diet: No Restrictions Discharge Activity: Return to Normal Activity Call your doctor if you observe: Fever of 101 or Higher, Shortness of breath Home Medications: Medications to take at Discharge Amlodipine [Norvasc] 5 mg PO DAILY 06/01/17 Pravastatin [Pravachol] 80 mg PO DAILY 06/01/17 Allopurinol [Zyloprim] 300 mg PO DAILY 03/16/19 Tamsulosin HCl [Flomax] 0.4 mg PO QHS 03/16/19 Ensure Enlive 120 ml PO 4X/DAY liquid 03/19/19 Memantine Hydrochloride [Namenda] 10 mg PO BID 06/05/19 Amoxicillin/Potassium Clav [Augmentin 875-125 Tablet] 1 each PO BID #8 tablet 06/08/19 Apixaban [Eliquis] 5 mg PO BID tab 06/08/19 Metoprolol Tartrate [Lopressor (beta carson)] 50 mg PO BID tab 06/08/19 Primary Care Physician: Amado Gregory MD [Primary Care Provider] - Within 2 Weeks Please Follow Up With[facility] Cardiology for atrial fibrillation When: 4-6 weeks. Disposition: Intermediate facility Minutes spent on discharge:: 35 Patient Condition:: Fair Medical Necessity - Tobacco Use Smoking Status: Current every day smoker Meaningful Use Info Meaningful Use Diagnoses (Choose all that apply): None applicable Inpatient E&M: 65595 Disch Hosp
--- NOTE | 2019-06-08 15:45 | CASEMGMT ---
Social Work Return call from [facility] [place] and they are able to accept pt today. Phone call to pt dgt and son and VM left for each. Pt dgt called RN back and RN updated dgt on discharge today to the [facility]. 7000 form completed in [employer] system. Orders faxed to the [facility] and transportation arranged for a 6:00 peanut picker by [facility]. Nursing notified. SONNY Cazares
== END 2019-06-08 18:20 | disposition skilled nursing facility (03) | DRG 195 ==
LOC: ED 12:33 → MS2 15:57
PROVIDERS: Emergency Provider Emergency Medicine; PCP Family Medicine
DX: J13 Pneumonia due to Streptococcus pneumoniae (principal); R53.81 Other malaise; I12.9 Hypertensive chronic kidney disease with stage 1 through stage 4 chronic kidney disease, or unspecified chronic kidney disease; N18.9 Chronic kidney disease, unspecified; E87.6 Hypokalemia; I48.91 Unspecified atrial fibrillation; F03.90 Unspecified dementia, unspecified severity, without behavioral disturbance, psychotic disturbance, mood disturbance, and anxiety; E78.5 Hyperlipidemia, unspecified; N40.0 Benign prostatic hyperplasia without lower urinary tract symptoms; F17.200 Nicotine dependence, unspecified, uncomplicated; Z79.899 Other long term (current) drug therapy
CPT/HCPCS: 36415; 71045; 80048; 80053; 81002; 83735; 83880; 84443; 84484; 85025; 87449; 87633; 87635; 93005; 93306; 96361; 96365; 96366; 97110; 97116; 97162; 97166; 97530; 97535; 99282; G2023; J7030; J7050; Q9957; A4216; J0696; U0004

== ENCOUNTER → 2019-06-09 14:40 | Outpatient (REF) | payer MEDICARE, MEDICAID, SELFPAY ==
[2019-06-05 13:46] VITALS: BMI 33.3
[2019-06-09 14:50] LABS: Absolute Lymphocyte Count 0.57 X10^3/uL (0.83-4.51); Absolute Neutrophil Count 4.1 X10^3/uL (2.0-7.7); Basophil# 0.03 X10^3/uL; Basophil% 0.5 % (0-1); Eosinophil# 0.14 X10^3/uL; Eosinophils% 2.5 % (0-5); Hematocrit 36.5 % (40-54); Hemoglobin 11.8 g/dL (13.0-16.5); Lymphocyte # 0.57 X10^3/ul (4.0); Lymphocyte % 10.3 % (19-41); Mean Corp Hgb Conc 32.3 g/dL (32-36); Mean Corpuscular Hgb 31.8 pg (27.0-32.0); Mean Corpuscular Volume 98.4 fL (80-94); Mean Platelet Vol. 9.1 fl (6.2-12.0); Monocyte% 10.9 % (0-10); NRBC Flagged by Analyzer 0 % (0-5); Neutrophil # 4.14 X10^3/uL (2.7-7.7); Neutrophil % 75.3 % (47-70); POSITIVE DIFFERENTIAL YES; Platelet Count 203 K/mm3 (150-450); RBC Distribution Width CV 13.6 % (11.6-14.6); RBC Distribution Width SD 47.5 fl (35.1-43.9); Red Blood Count 3.71 M/mm3 (4.6-6.2); White Blood Count 5.5 K/mm3 (4.4-11.0)
[2019-06-09 14:51] LABS: Differential Indicated SCAN CRITERIA MET
[2019-06-09 15:00] LABS: Anion Gap 5 (5-15); BUN 26 mg/dL (7-18); BUN/Creat Ratio 30.7 RATIO (10-20); Calcium,Total 8.8 mg/dL (8.5-10.1); Chloride 109 mmol/L (98-107); Creatinine, Serum 0.85 mg/dL (0.70-1.30); EST Glomerular Filtration Rate 92 mL/min (>60); Est Glom Filt Rate - Afr Amer 112 mL/min (>60); Glucose 146 mg/dL (74-106); Potassium 4.3 mmol/L (3.5-5.1); Sodium Level 140 mmol/L (136-145)
== END ==
LOC: OLS.AHA 14:40
PROVIDERS: PCP Family Medicine; Visit Provider Family Medicine
DX: R62.7 Adult failure to thrive (principal); I25.10 Atherosclerotic heart disease of native coronary artery without angina pectoris; R53.1 Weakness; J18.9 Pneumonia, unspecified organism
CPT/HCPCS: 80048; 85025

== ENCOUNTER → 2019-08-02 10:34 | Outpatient (CLI) | payer MEDICARE, MEDICAID, SELFPAY ==
[2019-07-17 13:28] VITALS: BMI 31.2
--- NOTE | 2019-08-02 10:36 | STEWCON_ITS ---
Reason For Study: AFIB/FLUTTER Stress Results Protocol: Dobutamine Stress Echo With Definiity Maximum Predicted HR: 140 bpm Target HR: 119 bpm % Maximum Predicted HR: 94 % DurationHeart Rate Stage (mm:ss) (bpm) BP Dose Comment BASELINE 80 138/80 6 CC DILUTED DEFINITY USED DSE- 10 MCG 3:48 88 136/6610.00RARE PVC, NO SX DSE- 20 MCG 3:54 131 130/6320.00RARE PVC, NO SX RECOVERY 98 145/76 DENIES COMPLAINT Stress Duration: 7:42 mm:ss Maximum Stress HR: 131 bpm Baseline Echocardiogram Findings The estimated ejection fraction is 65 %. Stress Echo Wall motion Data Resting WM Intermediate WM Stress WM Resting Wall Motion Wall Motion Stress No regional wall motion No regional wall motion abnormalities noted. abnormalities noted. EKG Data The baseline ECG displays normal sinus rhythm. The patient was titrated from 10 mcg to a maximum of 20 mcg of dobutamine during the stress. The maximum heart rate attained was 131 beats per minute. This was 93% of maximum predicted heart rate. During dobutamine infusion, there were no ST or T wave changes noted to suggest ischemia. No clinical angina was noted. Interpretation Summary The estimated ejection fraction is 65 %. Normal, adequate, dobutamine echocardiogram. Negative for ischemia by EKG and echocardiographic criteria. No anginal symptoms noted. Rare PVCs noted. Appropriate blood pressure response to dobutamine. Test terminated due to attainment target heart rate. Final LVEF is 75%. Decrease sensitivity due to poor echo windows requiring Definity agent. Patient tolerated procedure well. No complications. The study was technically difficult. Contrast injection was performed. Ordering Physician: Eric Vigil Referring Physician: Eric Vigil Performed By: Roselia Ibrahim, ROSALIECS, RVT
== END ==
PROVIDERS: PCP Family Medicine; Referring Provider Internal Medicine Cardiovascular Disease; Visit Provider Internal Medicine Cardiovascular Disease
DX: I25.10 Atherosclerotic heart disease of native coronary artery without angina pectoris (principal); I48.91 Unspecified atrial fibrillation; E78.5 Hyperlipidemia, unspecified; I10 Essential (primary) hypertension
CPT/HCPCS: 93017; 93350; J7040; Q9957; A4216; C8928

== ENCOUNTER 2020-05-21 13:56 | Emergency (ER) | payer MEDICARE, MEDICAID, SELFPAY ==
[2020-05-21 14:01] VITALS: BP 136/56; PULSE 62; RESP 16; TEMP 36.7; O2SAT 96; BMI 34.7
--- NOTE | 2020-05-21 14:20 | CT_ITS ---
STUDY: CT BRAIN WITHOUT CONTRAST REASON FOR EXAM: Male, 79 years old. Head injury following a fall. Dementia. Patient is on anticoagulants. RADIATION DOSAGE (If Supplied By Facility): CTDIvol = ( 44.99 ) mGy, DLP = ( 822.84 ) mGycm TECHNIQUE: Transaxial CT imaging of the brain was performed without administration of intravenous contrast material. Individualized dose optimization techniques were used for this CT. COMPARISON: Comparison is made with prior examination dated 03/16/2019. FINDINGS: Normal soft tissue structures. Normal calvarium. There is mild cerebral atrophy with widening of the extra-axial spaces and ventricular dilatation. There are areas of decreased attenuation within the white matter tracts of the supratentorial brain, consistent with microvascular disease changes. Stable focal encephalomalacia in the anterior aspect of the right frontal lobe as well as in the superior aspect of the right parietal lobe. Normal basal ganglia and thalami. Normal brainstem. Normal cerebellum. There is no intracranial hemorrhage. There are no findings of an acute ischemic infarction. Normal visualized paranasal sinuses. CT/Brain/Head without Contrast IMPRESSION: Chronic involutional changes of the brain. Stable examination. Electronically Signed: Gerald Kaplan MD at 15:04 EDT , Service support ,
--- NOTE | 2020-05-21 14:22 | CT_ITS ---
STUDY: CT CERVICAL SPINE WITHOUT CONTRAST REASON FOR EXAM: Male, 79 years old. Neck pain after fall RADIATION DOSAGE (If Supplied By Facility): CTDIvol = ( 25.72 ) mGy, DLP = ( 560.55 ) mGycm TECHNIQUE: High resolution transaxial imaging was performed without contrast material. Sagittal and coronal images were reconstructed. Individualized dose optimization techniques were used for this CT. COMPARISON: None FINDINGS: Normal craniovertebral junction. There are degenerative changes of the anterior atlantoaxial articulation. Normal odontoid process. There is reversal of the normal cervical lordosis. Normal vertebral bodies and posterior osseous elements. C2-3: Normal endplates. Normal disc height and morphology. Normal central canal and intervertebral neuroforamina. C3-4: Normal endplates. Normal disc height and morphology. Normal central canal and intervertebral neuroforamina. C4-5: Normal endplates. Normal disc height and morphology. Normal central canal and intervertebral neuroforamina. C5-6: Normal endplates. Normal disc height and morphology. Normal central canal and intervertebral neuroforamina. C6-7: Normal endplates. Normal disc height and morphology. Normal central canal and intervertebral neuroforamina. C7-T1: Normal endplates. Normal disc height and morphology. Normal central canal and intervertebral neuroforamina. Mild mucosal thickening at the base of the right maxillary sinus as well as the ethmoid sinuses. Atherosclerotic calcification of the cavernous portions of the internal carotid arteries bilaterally. CT/Spine Cervical without Contras IMPRESSION: No acute abnormality is seen. Electronically Signed: Gerald Kaplan MD at 15:05 EDT , Service support ,
[2020-05-21 14:33] LABS: Absolute Lymphocyte Count 0.31 X10^3/uL (0.83-4.51); Absolute Neutrophil Count 2.7 X10^3/uL (2.0-7.7); Basophil# 0.02 X10^3/uL; Basophil% 0.6 % (0-1); Eosinophil# 0.06 X10^3/uL; Eosinophils% 1.7 % (0-5); Hematocrit 33.1 % (40-54); Hemoglobin 11.2 g/dL (13.0-16.5); Lymphocyte # 0.31 X10^3/ul (0.83-4.51); Lymphocyte % 8.6 % (19-41); Mean Corp Hgb Conc 33.8 g/dL (32-36); Mean Corpuscular Hgb 33.1 pg (27.0-32.0); Mean Corpuscular Volume 97.9 fL (80-94); Mean Platelet Vol. 9.6 fl (6.2-12.0); Monocyte% 13.9 % (0-10); NRBC Flagged by Analyzer 0 % (0-5); Neutrophil # 2.69 X10^3/uL (2.7-7.7); Neutrophil % 74.9 % (47-70); POSITIVE DIFFERENTIAL YES; Platelet Count 148 K/mm3 (150-450); RBC Distribution Width CV 12.9 % (11.6-14.6); Red Blood Count 3.38 M/mm3 (4.6-6.2); White Blood Count 3.6 K/mm3 (4.4-11.0)
--- NOTE | 2020-05-21 14:37 | ED.VIS.GEN ---
History of Present Illness Chief Complaint: Fall Informant: Patient Narrative: 79-year-old male presents from local nursing facility where he fell out of his wheelchair. Patient is a Bernardo lift at baseline. States he fell forward struck his left forehead. No loss of consciousness. Patient is on Eliquis. States he also has pain in his left wrist as well as right hip. Denies any chest pain, shortness of breath, nausea, vomiting, abdominal pain. Was found to have a urinary tract infection at the nursing facility today. Past Medical History - Allergies and Home Meds Allergies/Adverse Reactions: Allergies No Known Allergies Allergy (Verified 05/21/20 14:04) Primary Care Physician: Amado Gregory MD [Primary Care Provider] - Prior records reviewed: Yes Past Medical History: - - CAD, hypertension, hyperlipidemia, atrial fibrillation Surgical History: noncontributory Lives: Correction Smoking Status: Former smoker Alcohol: None Drugs: None - Family History Maternal Family History: Reports: No pertinent history Paternal Family History: Reports: No pertinent history Review of Systems General: Denies: Chills, Fever, Sweats Eyes: Denies: Visual changes - bilaterally, Diplopia ENT: Denies: Rhinorrhea, Sore throat Cardiovascular: Denies: Chest pain, Palpitations Respiratory: Denies: Dyspnea, Cough, Dyspnea on exertion Gastrointestinal: Denies: Abdominal pain, Nausea, Vomiting, Diarrhea, Melena, Hematochezia Genitourinary: Denies: Dysuria, Hematuria, Frequency Musculoskeletal: Reports: Arthralgias. Denies: Back pain, Extremity Pain Skin: Denies: Rash, Wounds Neurological: Reports: Weakness. Denies: Headache, Numbness Physical Exam Vital Signs/Narrative: Vital Signs Temp Pulse Resp BP Pulse Ox 05/21/20 14:01 98.1 F 62 16 136/56 H 96 Inital Vital Signs reviewed: Yes General: Well nourished, Well developed, No Acute Distress Head: Normocephalic, - - Abrasion to the left forehead with a small amount of ecchymosis. Eyes: Perrl, EOMI ENT: Moist mucous membranes, No rhinorrhea Neck: Supple, Nontender Cardiovascular: Regular rate, Regular rhythm, No murmurs Respiratory: No distress, CTA bilaterally, Chest nontender Abdomen: Soft, Nontender, Nondistended, Normal bowel sounds Back: Nontender, Normal Inspection Extremities: No edema, - - Tenderness to palpation of the left wrist. Full range of motion. Strong and palpable pulses. No sensory changes. Tenderness along the posterior right hip without overlying skin changes. Skin: Normal color, No rash Neurological: Alert, Oriented x3, Cranial nerves II-XII grossly intact, Normal Strength, Normal Sensation Psychological: Normal affect, Normal Mood Diagnostic/Tx/Re-eval Clinical Impression(s) from Imaging Studies Brain CT 05/21/20 14:20 IMPRESSION: Chronic involutional changes of the brain. Stable examination. Electronically Signed: Gerald Kaplan MD at 15:04 EDT , Service support , Cervical Spine CT 05/21/20 14:22 IMPRESSION: No acute abnormality is seen. Electronically Signed: Gerald Kaplan MD at 15:05 EDT , Service support , Hip/Pelvis X-Ray 05/21/20 14:45 IMPRESSION: Mild degree of degenerative changes. No acute abnormalities seen. Electronically Signed: Gerald Kaplan MD at 15:26 EDT , Service support , Wrist X-Ray 05/21/20 14:45 IMPRESSION: Degenerative changes. No acute fracture or dislocation. Electronically Signed: Gerald Kaplan MD at 15:27 EDT , Service support , Laboratory Data 05/21/20 05/21/20 14:19 14:19 WBC 3.6 L RBC 3.38 L Hgb 11.2 L Hct 33.1 L MCV 97.9 H MCH 33.1 H MCHC 33.8 RDW Std Deviation 46.0 H RDW Coeff of Bhavani 12.9 Plt Count 148 L MPV 9.6 Immature Gran % (Auto) 0.300 Neut % (Auto) 74.9 H Lymph % (Auto) 8.6 L [place] % (Auto) 13.9 H Eos % (Auto) 1.7 Baso % (Auto) 0.6 Absolute Neuts (auto) 2.7 Absolute Lymphs (auto) 0.31 L Nucleated RBC % 0 Differential Comment SCANNED Diff Path Review May foll Sodium 136 Potassium 4.0 Chloride 104 Carbon Dioxide 27.0 Anion Gap 5 BUN 26 H Creatinine 1.08 Estim Creat Clear Calc 50.15 Est GFR (MDRD) Af Amer 84 Est GFR (MDRD) Non-Af 70 BUN/Creatinine Ratio 24.1 H Glucose 211 H Calcium 8.3 L Total Bilirubin 0.80 AST 31 ALT 37 Alkaline Phosphatase 112 Total Protein 6.7 Albumin 3.0 L Globulin 3.7 Albumin/Globulin Ratio 0.8 L - Medical Decision Making Patient appears well and nontoxic. CT of the head and neck negative. X-ray of the left wrist and right hip interpreted by myself showed no evidence of fracture dislocation. Radiology concurs. Lab work shows chronic changes without acute abnormalities. Patient was noted to have urinary tract infection sent from [facility] today. Was given Rocephin and fluid resuscitation. Will be given Keflex for home. Family at the bedside who is agreeable with him returning to [facility]. Stable at time of discharge. Impression: 1. Mechanical fall 2. UTI ED Disposition - Plan for ED Patient: Disposition: Care Home Facility Instructions: ED Mechanical Fall, ED Urinary Tract Infections in Men Prescriptions: Cephalexin [Keflex] 500 mg PO Q12 #14 capsule Prescription Printed Referrals: Amado Gregory MD [Primary Care Provider] - 2 Days
[2020-05-21 14:40] LABS: Differential Indicated SCAN CRITERIA MET
[2020-05-21 14:45] LABS: ALB/GLOB Ratio 0.8 RATIO (0.9-2.4); AST(SGOT) 31 U/L (15-37); Alanine Aminotransfer ALT/SGPT 37 U/L (16-61); Alkaline Phosphatase 112 U/L (45-117); Anion Gap 5 (5-15); BUN 26 mg/dL (7-18); BUN/Creat Ratio 24.1 RATIO (10-20); Calcium,Total 8.3 mg/dL (8.5-10.1); Chloride 104 mmol/L (98-107); Creatinine, Serum 1.08 mg/dL (0.70-1.30); EST Glomerular Filtration Rate 70 mL/min (>60); Est Glom Filt Rate - Afr Amer 84 mL/min (>60); Estimated Creatinine Clearance 50.15 ml/min; Globulin 3.7 g/dL (2.2-4.2); Glucose 211 mg/dL (74-106); Protein, Total 6.7 g/dL (6.4-8.2); Sodium Level 136 mmol/L (136-145)
--- NOTE | 2020-05-21 14:45 | RAD_ITS ---
STUDY: X-RAY - LEFT WRIST REASON FOR EXAM: Male, 79 years old. Wrist pain after fall TECHNIQUE: 3 view(s) of the wrist were obtained. COMPARISON: None. FINDINGS: Normal visualized distal radius and ulna. Normal radiocarpal articulation. Normal distal radioulnar articulation. Normal carpal bones. Normal carpal articulations. There is degenerative arthrosis of the carpometacarpal articulation of the thumb. Normal second through fifth carpometacarpal articulations. Normal visualized metacarpal bones. Vascular calcification. RAD/Wrist min 3 Views IMPRESSION: Degenerative changes. No acute fracture or dislocation. Electronically Signed: Gerald Kaplan MD at 15:27 EDT , Service support ,
--- NOTE | 2020-05-21 14:45 | RAD_ITS ---
STUDY: X-RAY - PELVIS AND RIGHT HIP REASON FOR EXAM: Male, 79 years old. Hip pain after fall TECHNIQUE: 3 views of the pelvis and hip. COMPARISON: Comparison is made with prior examination dated 03/10/2019. FINDINGS: There is a non-specific bowel gas pattern. There are multiple calcified phleboliths. Normal bilateral iliac wings, sacroiliac joints and visualized sacrum. Normal bilateral superior and inferior pubic rami. Normal pubic symphysis. Normal bilateral ischial tuberosities. Normal visualized femoral head. Normal acetabulum. There is mild articular joint space narrowing of the hip. RAD/HIP, UNI W/ Pelvis 2-3 Views IMPRESSION: Mild degree of degenerative changes. No acute abnormalities seen. Electronically Signed: Gerald Kaplan MD at 15:26 EDT , Service support ,
[2020-05-21 14:57] VITALS: BP 122/54; PULSE 61; RESP 23; O2SAT 93
[2020-05-21 15:00] VITALS: BP 122/54; PULSE 60; RESP 19; O2SAT 98
[2020-05-21 15:02] LABS: Differential Comment SCANNED
[2020-05-21] MEDS: Ceftriaxone 1 GM/50 ML BAG IV (15:33)
[2020-05-21 16:00] VITALS: BP 132/57; PULSE 57; RESP 20; O2SAT 94
--- NOTE | 2020-05-21 16:25 | NURSING ---
90 minute ETA back to retirement
[2020-05-21 17:00] VITALS: BP 137/57; PULSE 58; RESP 15; O2SAT 97
[2020-05-22 11:24] LABS: Pathologist Review Reviewed
== END 2020-05-21 18:03 | disposition skilled nursing facility (03) ==
PROVIDERS: Emergency Provider Emergency Medicine; PCP Family Medicine
DX: M25.532 Pain in left wrist (principal); M25.551 Pain in right hip; N39.0 Urinary tract infection, site not specified; I25.10 Atherosclerotic heart disease of native coronary artery without angina pectoris; I10 Essential (primary) hypertension; E78.5 Hyperlipidemia, unspecified; I48.91 Unspecified atrial fibrillation; F03.90 Unspecified dementia, unspecified severity, without behavioral disturbance, psychotic disturbance, mood disturbance, and anxiety; Z79.01 Long term (current) use of anticoagulants; Z79.899 Other long term (current) drug therapy; Z87.891 Personal history of nicotine dependence
CPT/HCPCS: 70450; 72125; 73110; 73502; 80053; 85025; 96365; 99285; J7050; A4216